=== PATIENT | male | born 1940 | race Caucasian/White ===

== ENCOUNTER → 2020-07-14 11:28 | Outpatient (CLI) | payer OTHER, SELFPAY ==
--- NOTE | ~2020-07-14 | XR_ITS ---
XR knee RT 2V DATE: 07/14/2020 11:49 INDICATION: Knee pain. TECHNIQUE: AP and lateral views COMPARISON: 03/10/2014 right knee FINDINGS: Status post right total knee arthroplasty with patellar resurfacing. No fracture or dislocation, periosteal reaction or bone destruction is evident. Small suprapatellar joint effusion. There is extensive calcification of the femoral, popliteal and trifurcation arteries. IMPRESSION: Status post right total knee arthroplasty Reviewed, dictated and finalized at location [facility]. 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
== END ==
PROVIDERS: PCP Family Medicine; Visit Provider Family Medicine
DX: M25.561 Pain in right knee (principal)
CPT/HCPCS: 73560

== ENCOUNTER 2021-08-09 16:12 | Inpatient (IN) | payer OTHER, SELFPAY ==
--- NOTE | ~2021-08-09 | CT_ITS ---
EXAMINATION: CTA chest PE protocol DATE: 08/09/2021 18:22 INDICATION: Decreased oxygen saturation. Positive d-dimer. Covid-positive. TECHNIQUE: Computed tomography angiography (CTA) of the chest was performed with 100 mL Omnipaque-350 intravenous contrast timed to evaluate the pulmonary arteries. Coronal maximum intensity projection 3D-reconstructions were created by the technologist. Automated exposure control and iterative reconst ruction technique were employed. Exam dose: 872.18 mGy-cm total exam DLP. COMPARISON: 02/13/2014 2 view chest FINDINGS: There is diagnostic contrast enhancement of the pulmonary arteries and no apparent pulmonar y embolism. Status post sternotomy. Mild thoracic aortic aneurysm and calcification. No thoracic aortic dissectio n is evident. Heart size is within normal range. There is no pericardial or pleural effusion. There is mild hilar and mediastinal lymph node prominence, likely reactive secondary to extensive pat tacos consolidating groundglass bilateral pulmonary infiltrates, right greater than left. Suspicious osteolytic or osteoblastic lesions. IMPRESSION: Extensive patchy consolidating bilateral groundglass pulmonary infiltrates, right greate r than left, suggesting extensive bilateral Covid pneumonia No pulmonary embolus is identified. Reviewed, dictated and finalized at [facility]. Reviewed, dictated and finalized at location [facility]. STERILIZER IMPRESSION: Extensive patchy consolidating bilateral groundglass pulmonary inf iltrates, right greater than left, suggesting extensive bilateral Covid pneumon ia No pulmonary embolus is identified.
--- NOTE | ~2021-08-09 | XR_ITS ---
XR chest 1V portable DATE: 08/14/2021 06:35 INDICATION: Pneumonia TECHNIQUE: Portable AP chest on 08/14/2021 at 0554 hours COMPARISON: 08/09/2021 CTA chest FINDINGS: Scattered patchy bilateral pulmonary infiltrates persist throughout both lung leyva, more prominent in the lower lung leyva. Status post sternotomy. Aortic calcification. No pleural effusion or pneumothorax. IMPRESSION: Persistent scattered patchy bilateral pulmonary infiltrates consistent with bilateral pne umonia, likely due to Covid 19 Reviewed, dictated and finalized at location A. LATION TECH IMPRESSION: Persistent scattered patchy bilateral pulmonary infiltrates consist ent with bilateral pneumonia, likely due to Covid 19
[2021-08-09 16:17] VITALS: BP 161/70; PULSE 70; RESP 20; TEMP 36.6; O2SAT 84
--- NOTE | 2021-08-09 16:43 | ED.GENADULT ---
HPI - General Adult General Chief complaint: Shortness of Breath/Dyspnea Stated complaint: LOW O2 SATS Time Seen by Provider: 08/09/21 16:14 Source: patient, EMS and RN notes reviewed Limitations: no limitations History of Present Illness HPI narrative: 81-year-old male presented to the emergency department for evaluation of a hypoxia. Patient began developing COVID symptoms on 20 July and tested positive on the . Patient reports he has had red eyes for the past 2 weeks. Patient was going to be evaluated by his primary care physician when he was found to be 84% on room air. Patient denies any chest pain or shortness of breath. Patient states that his children had noticed that he had been sounding out of breath during conversations. Patient also does report increased exertional fatigue. Patient denies any associated nausea vomiting or diarrhea. Patient denies any abdominal pain. Patient denies any fevers or myalgias. Patient did have bypass surgery in October. Patient does have a remote history of knee surgery and appendectomy. Related Data Home Medications Medication Instructions Recorded Confirmed blood sugar diagnostic #10 each 11/15/19 insulin glargine 100 unit/mL (3 30 unit SUB-Q DAILY 11/15/19 mL) subcutaneous pen lisinopril 10 mg tablet 10 mg PO DAILY 11/15/19 pen needle, diabetic 32 gauge x #10 each 11/15/19 triamcinolone acetonide 0.1 % 1 applic TOPICAL DAILY 11/15/19 lotion carvedilol 08/09/21 gabapentin 08/09/21 rosuvastatin mg 08/09/21 sertraline mg 08/09/21 08/09/21 Allergies Allergy/AdvReac Type Severity Reaction Status Date / Time No Known Allergies Allergy Verified 11/01/20 09:51 Review of Systems Review of Systems: CONSTITUTIONAL: Denies fever, chills, or sweats. EYES: Denies visual changes, redness, or discharge. ENT: Eye irritation CARDIOVASCULAR: Denies chest pain, palpitations, or edema. RESPIRATORY: Hypoxia and some exertional shortness of breath GASTROINTESTINAL: Denies abdominal pain, nausea, vomiting, or diarrhea. GENITOURINARY: Denies dysuria or hematuria. SKIN: Denies rash or itching. MUSCULOSKELETAL: Denies back pain, joint pain, or myalgia. NEUROLOGIC: Denies headache, numbness, or weakness. PSYCHIATRIC: Denies anxiety or depression. [facility] Social History Social History Smoking status: Never smoker Alcohol intake: never Substance use: never Exam Narrative: APPEARANCE: Well appearing, no pain in distress, well-nourished. HEAD: normocephalic, atraumatic. EYES: Erythema surrounding eyes. No edema, does not appear to be cellulitis. Normal conjunctiva NOSE: Normal no drainage THROAT: Pharynx clear, no exudate. NECK: Supple. No adenopathy, no masses. RESPIRATORY: Airway patent, respirations nonlabored. Clear to auscultation bilaterally, no rales, rhonchi, wheezing. CARDIOVASCULAR: Regular rate and rhythm without murmurs rubs or gallops. ABDOMINAL: Soft, nontender, nondistended, normal bowel sounds MUSCULOSKELETAL: Moves all extremities. Strength/ROM intact, No edema, No calf tenderness. NEURO: Alert. Cranial nerves II through XII intact. Good gait. Good coordination SKIN: Warm, dry. Normal Color PSYCHIATRIC: Normal affect/mood. Course Course Emergency Course: 81-year-old male presenting to the emergency room for evaluation of hypoxia after his COVID infection. Patient arrived and was saturating 84% on room air. Patient saturating at 94% on 5 L and is in no distress. Patient did have an elevated D-dimer. CTA PE study showed no evidence of pulmonary embolism but did show evidence of COVID-pneumonia. Patient discussed with the hospitalist and it was decided to not start patient on antibiotics, this thought to be COVID-pneumonia and not to be superinfection. Patient was clinically stable at time of admission. Vital Signs Vital signs: Vital Signs Temperature 97.8 F 08/09/21 16:17 Pulse Rate
[2021-08-09 17:30] LABS: Basophils Percent Auto 0.3 % (0.2-1.2); Eosinophils Absolute Auto 0.2 K/mm3 (0-0.3); Eosinophils Percent Auto 1.4 % (0-4.4); Hemoglobin 13.9 g/dL (14.0-18.0); Immature Granulocyte Absolute 0.14 K/mm3 (0.00-0.031); Immature Granulocyte Percent A 0.9 % (0-0.5); Lymphocytes Absolute Auto 1.67 K/mm3 (0.9-3.2); Lymphocytes Percent Auto 10.5 % (18.3-44.2); Mean Corpuscular HGB Conc 33.9 g/dl (32-36); Mean Corpuscular Hemoglobin 30.7 pg (26-34); Mean Corpuscular Volume 90.5 fl (80-100); Mean Platelet Volume 8.3 fl (7.4-10.4); Monocytes Percent Auto 6.1 % (2.6-8.5); Neutrophils Absolute Auto 12.9 K/mm3 (1.3-6.7); Neutrophils Percent Auto 80.8 % (45.5-73.1); Platelet Count Result 333 k/mm3 (150-375); Red Blood Count 4.53 M/mm3 (4.6-6.20); Red Cell Distribution Width 13.3 % (11.5-14.5); White Blood Count 15.9 K/mm3 (4.5-10.0)
[2021-08-09 17:32] VITALS: PULSE 72
[2021-08-09 17:39] LABS: Alanine Aminotransferase 21 U/L (4-50); Albumin Level 3.6 g/dL (3.5-5.1); Alkaline Phosphatase 87 U/L (38-126); Anion Gap 10 mmol/L (8-16); Aspartate Amino Transferase 39 U/L (17-59); Bilirubin,Total 0.2 mg/dL (0.2-1.3); Blood Urea Nitrogen 32 mg/dL (9-20); Calcium 8.7 mg/dL (8.4-10.2); Carbon Dioxide 24 mmol/L (22-30); Chloride 103 mmol/L (98-107); Estimated CRCL calculation 49 ml/min; Estimated Glomerular Filt Rate 53; Glucose 172 mg/dL (65-110); Lactate Dehydrogenase 766 U/L (313-618); Potassium 2.9 mmol/L (3.4-5.0); Sodium 137 mmol/L (137-145)
[2021-08-09 17:41] VITALS: BP 153/70; PULSE 62; RESP 22; O2SAT 93
[2021-08-09 17:58] LABS: D Dimer 11.57 ug/mL (<0.48)
[2021-08-09] MEDS: POTASSIUM CHLORIDE 20 MEQ PACKET (FOR LIQUID) 40 MEQ PO (18:29)
[2021-08-09 19:16] LABS: INR 1.2; Prothrombin Time 14.6 Seconds (11.1-14.7)
--- NOTE | 2021-08-09 19:58 | PM.IMHP ---
H&P: HPI History of Present Illness Date/Time: 08/09/21 19:58 this is a 81-year-old male patient who presented to the emergency room for evaluation of hypoxia. The patient stated that he tested positive for COVID on the 27 of July with symptoms starting on the 20 of July. The patient stated that he has been having thick drainage from both of his ice for at least 2 weeks. He stated that he has been going to an eye doctor and also to his regular doctor concerning a his eyes. The patient was prescribed Polytrim and stated that those bring his eyes. The patient has photosensitivity he stated that he has thick drainage and that his eyes are glued shut when he wakes up in the morning. The patient stated that he was going to his regular doctor today and he was found have a oxygen saturation to 84% on room air. White count is 15.9. H&H is 13.9 and 41.0. Potassium is 2.9. D-dimer 11.57. Blood sugar 172. LDH 766. CTA shows extensive patchy consolidating bilateral ground-glass pulmonary infiltrates, right greater than left, suggesting extensive bilateral COVID pneumonia. No pulmonary embolism is identified. The patient is currently on 6 L per nasal cannula. The patient was supplemented with potassium in the emergency room. He was started on remdesivir and Decadron. The patient is being admitted to inpatient services on the date of service of 08/09/2019 to Chief Complaint: Hypoxia with COVID Review of Systems Review of Systems: All systems reviewed & are unremarkable except as noted in HPI and below Constitutional: Constitutional: Reports as per HPI and Reports no additional constitutional complaints Eyes: Eyes: Reports as per HPI and Reports no additional eye complaints ENT: Reports system reviewed and no additional complaints, except as documented and Reports Normal hearing present Cardiovascular: Cardiovascular: Reports no additional cardiovascular complaints Respiratory: Respiratory: Reports no additional respiratory complaints and Reports no additional respiratory complaints Gastrointestinal: Gastrointestinal: Reports as per HPI and Reports no additional gastrointestinal complaints Musculoskeletal: Musculoskeletal: Reports no additional musculoskeletal complaints Integumentary/Breasts: Skin/Breast: Reports system reviewed and no additional complaints, except as docu and Reports as per HPI Neurologic: Reports system reviewed and no additional complaints, except as documented, Reports as per HPI and Reports Normal hearing present Psychiatric: Psychiatric: Reports no additional psychiatric complaints and Reports as per HPI Endocrine: Endocrine: Reports no additional endocrine complaints Hematologic/Lymphatic: Hematologic/Lymphatic: Reports no additional hematologic/lymphatic complaints Allergic/Immunologic: Allergic/Immunologic: Reports no additional allergic/immunologic complaints [facility] Past Medical History Medical History (Updated 08/09/21 @ 21:48 by Karina Weinberg NP) Diabetes GERD (gastroesophageal reflux disease) History of TIA (transient ischemic attack) HLD (hyperlipidemia) HTN (hypertension) Neuropathy Surgical History Surgical History (Updated 08/09/21 @ 21:48 by Karina Weinberg NP) H/O heart bypass surgery 5 vessel Hx of appendectomy Hx of total knee replacement Family History Family History (Updated 08/09/21 @ 21:50 by Karina Weinberg NP) Father Drug reaction Mother Diabetes mellitus Sibling Diabetes mellitus Social History Social History (Updated 08/09/21 @ 21:57 by Karina Weinberg NP) Social History: The patient stated that he quit smoking many years ago. He stated his around 1995. The patient is and he has 3 children. 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 he does not have a durable power compliance attorney for healthcare. He denies any alcohol marijuana or illicit drugs. Code status full code Smoking status: Former smoker Alcohol intake: never
[2021-08-09 20:04] VITALS: BP 188/88; PULSE 65; RESP 20; O2SAT 94
[2021-08-09] MEDS: REMDESIVIR 200 MG/NS 250 ML 200 MG/250 ML BAG 250 MG IVPB (20:09)
[2021-08-09 21:30] VITALS: BP 158/84; PULSE 60; RESP 16; TEMP 36.7; O2SAT 94
[2021-08-09 21:57] VITALS: BMI 32.3
[2021-08-09 21:58] VITALS: TEMP 36.7
[2021-08-10] VITALS (9 sets, daily range): BP systolic 133–169; BP diastolic 56–84; PULSE 56–74; RESP 18–20; TEMP 35.8–36.8; O2SAT 93–100
[2021-08-10] MEDS: FAMOTIDINE 10 MG TABLET PO ×2 (01:28→20:09)
[2021-08-10] MEDS: BENZONATATE 100 MG CAPSULE 200 MG PO ×4 (01:28→16:26)
[2021-08-10] MEDS: GABAPENTIN 100 MG CAPSULE BY MOUTH ×3 (01:28→20:09)
[2021-08-10] MEDS: carvediloL 6.25 MG TABLET BY MOUTH ×3 (01:29→20:09)
[2021-08-10] MEDS: ACETAMINOPHEN 325 MG TABLET 650 MG PO (01:29)
[2021-08-10] MEDS: INSULIN GLARGINE (*BKC) 100 UNITS/ML 30 UNITS SUB-Q ×2 (01:31→20:09)
[2021-08-10 01:40] LABS: Glucose Point of Care 204 mg/dl (65-105)
--- NOTE | 2021-08-10 02:15 | ADMGEN ---
This patient, Jordy Olivarez, was admitted to [facility] Surg Room 305-01 at 2130. Patient/family oriented to hospital policies and general routines including ID bracelet, bed and alarms, visiting hours, pain management, procedures, bathroom and other care routines, personal items, smoking policy, room service/diet, and visiting hours. Information on how to activate the Rapid Response Team has been discussed. Patient/Family are encouraged to report perceived risks to care and to ask questions if they do not understand what they are told or what they should do.
[2021-08-10] MEDS: ERYTHROMYCIN OPHTH OINTMENT 1 GM TUBE 1 APPLIC EACH EYE ×5 (05:08→20:09)
[2021-08-10 07:22] LABS: Basophils Percent Auto 0.2 % (0.2-1.2); Hematocrit 40.7 % (42.0-52.0); Hemoglobin 13.8 g/dL (14.0-18.0); Immature Granulocyte Absolute 0.12 K/mm3 (0.00-0.031); Mean Corpuscular HGB Conc 33.9 g/dl (32-36); Mean Corpuscular Hemoglobin 30.7 pg (26-34); Mean Corpuscular Volume 90.4 fl (80-100); Mean Platelet Volume 8.8 fl (7.4-10.4); Monocytes Absolute Auto 0.3 K/mm3 (0.1-0.6); Neutrophils Absolute Auto 10.8 K/mm3 (1.3-6.7); Neutrophils Percent Auto 87.8 % (45.5-73.1); Platelet Count Result 350 k/mm3 (150-375); Red Cell Distribution Width 13.3 % (11.5-14.5); White Blood Count 12.3 K/mm3 (4.5-10.0)
[2021-08-10 07:33] LABS: Alanine Aminotransferase 23 U/L (4-50); Albumin Level 3.7 g/dL (3.5-5.1); Alkaline Phosphatase 83 U/L (38-126); Anion Gap 10 mmol/L (8-16); Aspartate Amino Transferase 40 U/L (17-59); Bilirubin,Total 0.2 mg/dL (0.2-1.3); Blood Urea Nitrogen 33 mg/dL (9-20); Calcium 8.8 mg/dL (8.4-10.2); Carbon Dioxide 25 mmol/L (22-30); Chloride 104 mmol/L (98-107); Estimated CRCL calculation 58 ml/min; Estimated Glomerular Filt Rate > 60; Glucose 174 mg/dL (65-110); Lactate Dehydrogenase 747 U/L (313-618); Potassium 3.4 mmol/L (3.4-5.0); Sodium 139 mmol/L (137-145)
[2021-08-10 07:37] LABS: Hemoglobin A1C 7.3 % (<5.7)
[2021-08-10 08:00] LABS: INR 1.1; Prothrombin Time 14.2 Seconds (11.1-14.7)
[2021-08-10] MEDS: DEXAMETHASONE 2 MG TABLET 6 MG PO (08:04)
[2021-08-10] MEDS: SODIUM BICARBONATE TAB 650 MG TABLET 1300 MG PO ×2 (08:04→16:26)
[2021-08-10] MEDS: ENOXAPARIN 40 MG/0.4 ML SYRINGE SUB-Q (08:04)
[2021-08-10] MEDS: ASPIRIN 81 MG CHEWABLE TABLET PO (08:04)
[2021-08-10] MEDS: lisinopriL 10 MG TABLET PO (08:04)
[2021-08-10] MEDS: ROSUVASTATIN 10 MG TABLET PO (08:05)
[2021-08-10] MEDS: TRIAMCINOLONE ACET 0.1% CREAM 15 GM TUBE 1 APPLIC TOPICAL (08:06)
[2021-08-10] MEDS: SERTRALINE HCL 25 MG TABLET PO (08:06)
[2021-08-10 08:48] LABS: Glucose Point of Care 150 mg/dl (65-105)
--- NOTE | 2021-08-10 09:00 | PM.IMPN ---
Progress Note: A&P Assessment and Plan (1) Pneumonia due to COVID-19 virus: Code(s): U07.1 - COVID-19; J12.82 - Pneumonia due to coronavirus disease 2018 Status: Acute Assessment and Plan: Tested COVID positive 07/27/21 CTA Extensive patchy consolidating bilateral groundglass pulmonary infiltrates, right greater than left, suggesting extensive bilateral Covid pneumonia oxygen at 10 L per nasal cannula, wean to maintain saturation >90% Continue with Decadron and remdesivir Day 2 Trend Inflammatory markers: LDH 747, D-dimer 11.57 Encourage self proning Albuterol inhalers IS, Cornette therapy Sputum culture to r/o atypical infection Start azithromycin and ceftriaxone since WBC are elevated, but tending down currently 12.3 (2) Acute respiratory failure due to COVID-19: Code(s): U07.1 - COVID-19; J96.00 - Acute respiratory failure, unspecified whether with hypoxia or hypercapnia Status: Acute Assessment and Plan: Saturations low in ED 84% Supplemental oxygen Wean oxygen as indicated Maintain saturations to keep >90% (3) Diabetes: Code(s): E11.9 - Type 2 diabetes mellitus without complications Status: Chronic Assessment and Plan: Glucose 174 Sliding scale insulin A1c 7.3 Seems to be diet controlled Trend closely as patient is on steroids Adjust therapy as indicated (4) HTN (hypertension): Code(s): I10 - Essential (primary) hypertension Status: Chronic Assessment and Plan: BP elevated at 158/84 Continue home Coreg 6.25 and lisinopril 10mg Trend blood pressure Adjust medications as indicated (5) HLD (hyperlipidemia): Code(s): E78.5 - Hyperlipidemia, unspecified Status: Chronic Assessment and Plan: AST/ALT 40/23 Continue with rosuvastatin (6) Conjunctivitis: Code(s): H10.9 - Unspecified conjunctivitis Status: Acute Assessment and Plan: Continue erythromycin ointment (7) Neuropathy: Code(s): G62.9 - Polyneuropathy, unspecified Status: Chronic Assessment and Plan: Continue gabapentin 100mg BID Increase based on symptoms Time Spent With Patient Time with patient: Greater than 35 minutes Subjective Date/time seen: 08/10/21 0900 Interval history: Date/Time: 08/09/21 19:58 This is a 81-year-old male patient who presented to the emergency room for evaluation of hypoxia. The patient stated that he tested positive for COVID on the 27 of July with symptoms starting on the 20 of July. The patient stated that he has been having thick drainage from both of his ice for at least 2 weeks. He stated that he has been going to an eye doctor and also to his regular doctor concerning a his eyes. The patient was prescribed Polytrim and stated that those bring his eyes. The patient has photosensitivity he stated that he has thick drainage and that his eyes are glued shut when he wakes up in the morning. The patient stated that he was going to his regular doctor today and he was found have a oxygen saturation to 84% on room air. White count is 15.9. H&H is 13.9 and 41.0. Potassium is 2.9. D-dimer 11.57. Blood sugar 172. LDH 766. CTA shows extensive patchy consolidating bilateral ground-glass pulmonary infiltrates, right greater than left, suggesting extensive bilateral COVID pneumonia. No pulmonary embolism is identified. The patient is currently on 6 L per nasal cannula. The patient was supplemented with potassium in the emergency room. He was started on remdesivir and Decadron. Date/Time 08/10/21 0900 Patient stated that he is short of breath 3 moves around. He is ready to go. However patient is on 10 L nasal cannula at this time. Patient does have a minimal appetite. Patient did state that he had bypass x5 done in October of last year. He denies chest pain, nausea, vomiting, diarrhea, co
--- NOTE | 2021-08-10 09:00 | P.PNIM_ITS ---
Progress Note: A&P Assessment and Plan (1) Pneumonia due to COVID-19 virus: Code(s): U07.1 - COVID-19; J12.82 - Pneumonia due to coronavirus disease 2019 Status: Acute Assessment and Plan: * Tested COVID positive 07/27/21 * CTA Extensive patchy consolidating bilateral groundglass pulmonary infiltrates, right greater than left, suggesting extensive bilateral Covid pneumonia * oxygen at 10 L per nasal cannula, wean to maintain saturation >90% * Continue with Decadron and remdesivir Day 2 * Trend Inflammatory markers: LDH 747, D-dimer 11.57 * Encourage self proning * Albuterol inhalers * IS, Cornette therapy * Sputum culture to r/o atypical infection * Start azithromycin and ceftriaxone since WBC are elevated, but tending down currently 12.3 (2) Acute respiratory failure due to COVID-19: Code(s): U07.1 - COVID-19; J96.00 - Acute respiratory failure, unspecified whether with hypoxia or hypercapnia Status: Acute Assessment and Plan: * Saturations low in ED 84% * Supplemental oxygen * Wean oxygen as indicated * Maintain saturations to keep >90% (3) Diabetes: Code(s): E11.9 - Type 2 diabetes mellitus without complications Status: Chronic Assessment and Plan: * Glucose 174 * Sliding scale insulin * A1c 7.3 * Seems to be diet controlled * Trend closely as patient is on steroids * Adjust therapy as indicated (4) HTN (hypertension): Code(s): I10 - Essential (primary) hypertension Status: Chronic Assessment and Plan: * BP elevated at 158/84 * Continue home Coreg 6.25 and lisinopril 10mg * Trend blood pressure * Adjust medications as indicated (5) HLD (hyperlipidemia): Code(s): E78.5 - Hyperlipidemia, unspecified Status: Chronic Assessment and Plan: * AST/ALT 40/23 * Continue with rosuvastatin (6) Conjunctivitis: Code(s): H10.9 - Unspecified conjunctivitis Status: Acute Assessment and Plan: * Continue erythromycin ointment (7) Neuropathy: Code(s): G62.9 - Polyneuropathy, unspecified Status: Chronic Assessment and Plan: * Continue gabapentin 100mg BID * Increase based on symptoms Time Spent With Patient Time with patient: Greater than 35 minutes Subjective Date/time seen: 08/10/21 0900 Interval history: Date/Time: 08/09/21 19:58 This is a 81-year-old male patient who presented to the emergency room for evaluation of hypoxia. The patient stated that he tested positive for COVID on the 27 of July with symptoms starting on the 20 of July. The patient stated that he has been having thick drainage from both of his ice for at least 2 weeks. He stated that he has been going to an eye doctor and also to his regular doctor concerning a his eyes. The patient was prescribed Polytrim and stated that those bring his eyes. The patient has photosensitivity he stated that he has thick drainage and that his eyes are glued shut when he wakes up in the morning. The patient stated that he was going to his regular doctor today and he was found have a oxygen saturation to 84% on room air. White count is 15.9. H&H is 13.9 and 41.0. Potassium is 2.9. D-dimer 11.57. Blood sugar 172. LDH 766. CTA shows extensive patchy consolidating bilateral ground-glass pulmonary infiltrates, right greater than left, suggesting extensive bilateral COVID pneumonia. No pul
[2021-08-10 12:04] LABS: Glucose Point of Care 215 mg/dl (65-105)
[2021-08-10] MEDS: INSULIN ASPART (*BKC) 100 UNITS/ML SUB-Q ×2 (12:19→16:29)
[2021-08-10 13:25] LABS: Thyroid Stimulating Hormone Reflex 0.571 uIU/mL (0.465-4.68)
[2021-08-10 16:25] LABS: Glucose Point of Care 266 mg/dl (65-105)
[2021-08-10] MEDS: REMDESIVIR 100 MG/NS 250 ML 100 MG/250 ML BAG 250 MG IVPB (20:10)
[2021-08-10 22:36] LABS: Glucose Point of Care 255 mg/dl (65-105)
[2021-08-11] VITALS (9 sets, daily range): BP systolic 150–188; BP diastolic 66–143; PULSE 54–69; RESP 16–20; TEMP 36.1–37.1; O2SAT 88–96
[2021-08-11] MEDS: ACETAMINOPHEN 325 MG TABLET 650 MG PO ×2 (04:00→19:38)
[2021-08-11] MEDS: ERYTHROMYCIN OPHTH OINTMENT 1 GM TUBE 1 APPLIC EACH EYE ×5 (04:05→20:58)
[2021-08-11 06:40] LABS: Alanine Aminotransferase 34 U/L (4-50); Estimated CRCL calculation 50 ml/min; Estimated Glomerular Filt Rate 53
[2021-08-11 06:45] LABS: INR 1.3
[2021-08-11 07:36] LABS: Basophils Percent Auto 0.1 % (0.2-1.2); Hemoglobin 13.3 g/dL (14.0-18.0); Immature Granulocyte Absolute 0.11 K/mm3 (0.00-0.031); Immature Granulocyte Percent A 0.8 % (0-0.5); Lymphocytes Absolute Auto 1.68 K/mm3 (0.9-3.2); Lymphocytes Percent Auto 12.1 % (18.3-44.2); Mean Corpuscular HGB Conc 33.3 g/dl (32-36); Mean Corpuscular Hemoglobin 30.7 pg (26-34); Mean Corpuscular Volume 92.4 fl (80-100); Mean Platelet Volume 8.8 fl (7.4-10.4); Monocytes Percent Auto 7.3 % (2.6-8.5); Neutrophils Absolute Auto 11.1 K/mm3 (1.3-6.7); Neutrophils Percent Auto 79.7 % (45.5-73.1); Platelet Count Result 383 k/mm3 (150-375); Red Blood Count 4.33 M/mm3 (4.6-6.20); Red Cell Distribution Width 13.4 % (11.5-14.5); White Blood Count 13.9 K/mm3 (4.5-10.0)
[2021-08-11 07:54] LABS: Alanine Aminotransferase 34 U/L (4-50); Albumin Level 3.3 g/dL (3.5-5.1); Alkaline Phosphatase 72 U/L (38-126); Anion Gap 9 mmol/L (8-16); Aspartate Amino Transferase 51 U/L (17-59); Bilirubin,Total 0.2 mg/dL (0.2-1.3); Blood Urea Nitrogen 37 mg/dL (9-20); CRP 7.7 mg/dL (<1.0); Calcium 8.6 mg/dL (8.4-10.2); Carbon Dioxide 25 mmol/L (22-30); Chloride 103 mmol/L (98-107); Estimated CRCL calculation 50 ml/min; Estimated Glomerular Filt Rate 53; Glucose 161 mg/dL (65-110); Lactate Dehydrogenase 669 U/L (313-618); Magnesium 2.2 mg/dL (1.6-2.3); NT Pro B Type Natriuretic Pept 1600 pg/mL (5-100); Potassium 3.8 mmol/L (3.4-5.0); Sodium 137 mmol/L (137-145)
[2021-08-11 08:15] LABS: Glucose Point of Care 142 mg/dl (65-105)
[2021-08-11] MEDS: DEXAMETHASONE 2 MG TABLET 6 MG PO (08:17)
[2021-08-11] MEDS: BENZONATATE 100 MG CAPSULE 200 MG PO ×3 (08:17→17:43)
[2021-08-11] MEDS: SERTRALINE HCL 25 MG TABLET PO (08:17)
[2021-08-11] MEDS: SODIUM BICARBONATE TAB 650 MG TABLET 1300 MG PO ×2 (08:17→17:43)
[2021-08-11] MEDS: GABAPENTIN 100 MG CAPSULE BY MOUTH ×2 (08:17→20:59)
[2021-08-11] MEDS: carvediloL 6.25 MG TABLET BY MOUTH (08:17)
[2021-08-11] MEDS: ENOXAPARIN 40 MG/0.4 ML SYRINGE SUB-Q (08:18)
[2021-08-11] MEDS: lisinopriL 10 MG TABLET PO (08:18)
[2021-08-11] MEDS: ASPIRIN 81 MG CHEWABLE TABLET PO (08:18)
[2021-08-11] MEDS: ROSUVASTATIN 10 MG TABLET PO (08:18)
[2021-08-11] MEDS: TRIAMCINOLONE ACET 0.1% CREAM 15 GM TUBE 1 APPLIC TOPICAL (08:19)
[2021-08-11 08:36] LABS: D Dimer 3.54 ug/mL (<0.48)
--- NOTE | 2021-08-11 09:45 | P.PNIM_ITS ---
Progress Note: A&P Assessment and Plan (1) Pneumonia due to COVID-19 virus: Code(s): U07.1 - COVID-19; J12.82 - Pneumonia due to coronavirus disease 2019 Status: Acute Assessment and Plan: * Tested COVID positive 07/27/21 * CTA Extensive patchy consolidating bilateral groundglass pulmonary infiltrates, right greater than left, suggesting extensive bilateral Covid pneumonia * oxygen at 6 L per nasal cannula, wean to maintain saturation >90% * Continue with Decadron and remdesivir Day 3 * Trend Inflammatory markers: LDH 669, D-dimer 3.54, CRP 7., Ferritin 189 * BNP elevated 1600, one dose of IV lasix 40mg * Encourage self proning * Albuterol inhalers * IS, Cornette therapy * Sputum culture came back contaminated * Start azithromycin and ceftriaxone since WBC are elevated, but tending down currently 13.9 (2) Acute respiratory failure due to COVID-19: Code(s): U07.1 - COVID-19; J96.00 - Acute respiratory failure, unspecified whether with hypoxia or hypercapnia Status: Acute Assessment and Plan: * Saturations low in ED 84% * Supplemental oxygen * Wean oxygen as indicated * Maintain saturations to keep >90% (3) Diabetes: Code(s): E11.9 - Type 2 diabetes mellitus without complications Status: Chronic Assessment and Plan: * Glucose 161 * Sliding scale insulin * A1c 7.3 * Seems to be diet controlled * Trend closely as patient is on steroids * Adjust therapy as indicated (4) HTN (hypertension): Code(s): I10 - Essential (primary) hypertension Status: Chronic Assessment and Plan: * BP elevated at 177/71 * Continue home Coreg 6.25, increased to 12.5mg and lisinopril 10mg * Trend blood pressure * Adjust medications as indicated (5) HLD (hyperlipidemia): Code(s): E78.5 - Hyperlipidemia, unspecified Status: Chronic Assessment and Plan: * AST/ALT 51/34 * Continue with rosuvastatin (6) Conjunctivitis: Code(s): H10.9 - Unspecified conjunctivitis Status: Acute Assessment and Plan: * Continue erythromycin ointment (7) Neuropathy: Code(s): G62.9 - Polyneuropathy, unspecified Status: Chronic Assessment and Plan: * Continue gabapentin 100mg BID * Increase based on symptoms (8) Fluid overload: Code(s): E87.70 - Fluid overload, unspecified Status: Acute Assessment and Plan: * BNP elevated 1600 * Getting an echo * No history of CHF, however could be playing a role * Lasix as indicated day by day Time Spent With Patient Time with patient: Greater than 35 minutes Subjective Date/time seen: 08/11/21 10:20 Interval history: Date/Time: 08/09/21 19:58 This is a 81-year-old male patient who presented to the emergency room for eval uation of hypoxia. The patient stated that he tested positive for COVID on the 27 of July with symptoms starting on the 20 of July. The patient stated that he has been having thick drainage from both of his ice for at least 2 weeks. He stated that he has been going to an eye doctor and also to his regular doctor concerning a his eyes. The patient was prescribed Polytrim and stated that those bring his eyes. The patient has photosensitivity he stated that he has thick drainage and that his eyes are glued shut when he wakes up in the morning. The patient
--- NOTE | 2021-08-11 09:45 | PM.IMPN ---
Progress Note: A&P Assessment and Plan (1) Pneumonia due to COVID-19 virus: Code(s): U07.1 - COVID-19; J12.82 - Pneumonia due to coronavirus disease 2019 Status: Acute Assessment and Plan: Tested COVID positive 07/27/21 CTA Extensive patchy consolidating bilateral groundglass pulmonary infiltrates, right greater than left, suggesting extensive bilateral Covid pneumonia oxygen at 6 L per nasal cannula, wean to maintain saturation >90% Continue with Decadron and remdesivir Day 3 Trend Inflammatory markers: LDH 669, D-dimer 3.54, CRP 7., Ferritin 189 BNP elevated 1600, one dose of IV lasix 40mg Encourage self proning Albuterol inhalers IS, Cornette therapy Sputum culture came back contaminated Start azithromycin and ceftriaxone since WBC are elevated, but tending down currently 13.9 (2) Acute respiratory failure due to COVID-19: Code(s): U07.1 - COVID-19; J96.00 - Acute respiratory failure, unspecified whether with hypoxia or hypercapnia Status: Acute Assessment and Plan: Saturations low in ED 84% Supplemental oxygen Wean oxygen as indicated Maintain saturations to keep >90% (3) Diabetes: Code(s): E11.9 - Type 2 diabetes mellitus without complications Status: Chronic Assessment and Plan: Glucose 161 Sliding scale insulin A1c 7.3 Seems to be diet controlled Trend closely as patient is on steroids Adjust therapy as indicated (4) HTN (hypertension): Code(s): I10 - Essential (primary) hypertension Status: Chronic Assessment and Plan: BP elevated at 177/71 Continue home Coreg 6.25, increased to 12.5mg and lisinopril 10mg Trend blood pressure Adjust medications as indicated (5) HLD (hyperlipidemia): Code(s): E78.5 - Hyperlipidemia, unspecified Status: Chronic Assessment and Plan: AST/ALT 51/34 Continue with rosuvastatin (6) Conjunctivitis: Code(s): H10.9 - Unspecified conjunctivitis Status: Acute Assessment and Plan: Continue erythromycin ointment (7) Neuropathy: Code(s): G62.9 - Polyneuropathy, unspecified Status: Chronic Assessment and Plan: Continue gabapentin 100mg BID Increase based on symptoms (8) Fluid overload: Code(s): E87.70 - Fluid overload, unspecified Status: Acute Assessment and Plan: BNP elevated 1600 Getting an echo No history of CHF, however could be playing a role Lasix as indicated day by day Time Spent With Patient Time with patient: Greater than 35 minutes Subjective Date/time seen: 08/11/21 10:20 Interval history: Date/Time: 08/09/21 19:58 This is a 81-year-old male patient who presented to the emergency room for evaluation of hypoxia. The patient stated that he tested positive for COVID on the 27 of July with symptoms starting on the 20 of July. The patient stated that he has been having thick drainage from both of his ice for at least 2 weeks. He stated that he has been going to an eye doctor and also to his regular doctor concerning a his eyes. The patient was prescribed Polytrim and stated that those bring his eyes. The patient has photosensitivity he stated that he has thick drainage and that his eyes are glued shut when he wakes up in the morning. The patient stated that he was going to his regular doctor today and he was found have a oxygen saturation to 84% on room air. White count is 15.9. H&H is 13.9 and 41.0. Potassium is 2.9. D-dimer 11.57. Blood sugar 172. LDH 766. CTA shows extensive patchy consolidating bilateral ground-glass pulmonary infiltrates, right greater than left, suggesting extensive bilateral COVID pneumonia. No pulmonary embolism is identified. The patient is currently on 6 L per nasal cannula. The patient was supplemented with potassium in the emergency room. He was started on remdesivir
[2021-08-11] MEDS: FUROSEMIDE INJ 40 MG/4 ML VIAL IV PUSH (10:36)
[2021-08-11] MEDS: WATER FOR IRRIGATION, STERILE 1,000 ML BOTTLE 1000 ML (10:37)
[2021-08-11 11:44] LABS: Glucose Point of Care 180 mg/dl (65-105)
[2021-08-11] MEDS: INSULIN ASPART (*BKC) 100 UNITS/ML SUB-Q (17:43)
[2021-08-11 17:50] LABS: Glucose Point of Care 244 mg/dl (65-105)
[2021-08-11] MEDS: INSULIN GLARGINE (*BKC) 100 UNITS/ML 30 UNITS SUB-Q (20:56)
[2021-08-11] MEDS: REMDESIVIR 100 MG/NS 250 ML 100 MG/250 ML BAG 250 MG IVPB (20:56)
[2021-08-11] MEDS: carvediloL 12.5 MG TABLET BY MOUTH (20:58)
[2021-08-11] MEDS: FAMOTIDINE 10 MG TABLET PO (20:59)
[2021-08-11 21:14] LABS: Glucose Point of Care 306 mg/dl (65-105)
[2021-08-12] VITALS (8 sets, daily range): BP systolic 136–167; BP diastolic 48–70; PULSE 51–85; RESP 14–16; TEMP 36.1–36.8; O2SAT 90–96
[2021-08-12] MEDS: ERYTHROMYCIN OPHTH OINTMENT 1 GM TUBE 1 APPLIC EACH EYE ×5 (04:51→20:21)
[2021-08-12 06:24] LABS: Basophils Percent Auto 0.1 % (0.2-1.2); Hematocrit 41.6 % (42.0-52.0); Hemoglobin 14.1 g/dL (14.0-18.0); Immature Granulocyte Absolute 0.09 K/mm3 (0.00-0.031); Immature Granulocyte Percent A 0.7 % (0-0.5); Lymphocytes Absolute Auto 1.55 K/mm3 (0.9-3.2); Lymphocytes Percent Auto 12.6 % (18.3-44.2); Mean Corpuscular HGB Conc 33.9 g/dl (32-36); Mean Corpuscular Hemoglobin 30.8 pg (26-34); Mean Corpuscular Volume 90.8 fl (80-100); Mean Platelet Volume 8.7 fl (7.4-10.4); Monocytes Absolute Auto 0.8 K/mm3 (0.1-0.6); Monocytes Percent Auto 6.3 % (2.6-8.5); Neutrophils Absolute Auto 9.9 K/mm3 (1.3-6.7); Neutrophils Percent Auto 80.3 % (45.5-73.1); Platelet Count Result 398 k/mm3 (150-375); Red Blood Count 4.58 M/mm3 (4.6-6.20); Red Cell Distribution Width 13.2 % (11.5-14.5); White Blood Count 12.3 K/mm3 (4.5-10.0)
[2021-08-12 06:46] LABS: Alanine Aminotransferase 33 U/L (4-50); Albumin Level 3.4 g/dL (3.5-5.1); Alkaline Phosphatase 76 U/L (38-126); Anion Gap 10 mmol/L (8-16); Aspartate Amino Transferase 39 U/L (17-59); Bilirubin,Total 0.4 mg/dL (0.2-1.3); Blood Urea Nitrogen 46 mg/dL (9-20); CRP 3.4 mg/dL (<1.0); Calcium 8.7 mg/dL (8.4-10.2); Carbon Dioxide 29 mmol/L (22-30); Chloride 98 mmol/L (98-107); Estimated CRCL calculation 50 ml/min; Estimated Glomerular Filt Rate 53; Glucose 181 mg/dL (65-110); Magnesium 2.1 mg/dL (1.6-2.3); Sodium 137 mmol/L (137-145)
[2021-08-12 07:24] LABS: INR 1.2; Prothrombin Time 14.6 Seconds (11.1-14.7)
[2021-08-12 07:42] LABS: D Dimer 2.78 ug/mL (<0.48)
[2021-08-12 08:19] LABS: Glucose Point of Care 160 mg/dl (65-105)
[2021-08-12] MEDS: ENOXAPARIN 40 MG/0.4 ML SYRINGE SUB-Q (08:21)
[2021-08-12] MEDS: GABAPENTIN 100 MG CAPSULE BY MOUTH ×2 (08:21→20:21)
[2021-08-12] MEDS: TRIAMCINOLONE ACET 0.1% CREAM 15 GM TUBE 1 APPLIC TOPICAL (08:21)
[2021-08-12] MEDS: DEXAMETHASONE 2 MG TABLET 6 MG PO (08:21)
[2021-08-12] MEDS: FUROSEMIDE INJ 40 MG/4 ML VIAL IV PUSH (08:21)
[2021-08-12] MEDS: ROSUVASTATIN 10 MG TABLET PO (08:21)
[2021-08-12] MEDS: ASPIRIN 81 MG CHEWABLE TABLET PO (08:22)
[2021-08-12] MEDS: carvediloL 12.5 MG TABLET BY MOUTH ×2 (08:22→20:21)
[2021-08-12] MEDS: SODIUM BICARBONATE TAB 650 MG TABLET 1300 MG PO ×2 (08:22→16:44)
[2021-08-12] MEDS: SERTRALINE HCL 25 MG TABLET PO (08:22)
[2021-08-12] MEDS: lisinopriL 10 MG TABLET PO (08:22)
[2021-08-12] MEDS: BENZONATATE 100 MG CAPSULE 200 MG PO ×3 (08:22→16:44)
--- NOTE | 2021-08-12 09:30 | PM.IMPN ---
Progress Note: A&P Assessment and Plan (1) Pneumonia due to COVID-19 virus: Code(s): U07.1 - COVID-19; J12.82 - Pneumonia due to coronavirus disease 2019 Status: Acute Assessment and Plan: Tested COVID positive 07/27/21 CTA Extensive patchy consolidating bilateral groundglass pulmonary infiltrates, right greater than left, suggesting extensive bilateral Covid pneumonia oxygen at 6 L per nasal cannula, wean to maintain saturation >90% Continue with Decadron and remdesivir Day 3 Trend Inflammatory markers: LDH 685, D-dimer 2.78, CRP 3.4, Ferritin 159 BNP elevated 1600, one dose of IV lasix 40mg repeated, will give a dose again tonight Encourage self proning Albuterol inhalers IS, Cornette therapy Sputum culture came back contaminated Start azithromycin and ceftriaxone since WBC are elevated, but tending down currently WBC 12.3 (2) Acute respiratory failure due to COVID-19: Code(s): U07.1 - COVID-19; J96.00 - Acute respiratory failure, unspecified whether with hypoxia or hypercapnia Status: Acute Assessment and Plan: Saturations low in ED 84% Supplemental oxygen Wean oxygen as indicated Maintain saturations to keep >90% (3) Diabetes: Code(s): E11.9 - Type 2 diabetes mellitus without complications Status: Chronic Assessment and Plan: Glucose 181 Sliding scale insulin A1c 7.3 Seems to be diet controlled Trend closely as patient is on steroids Adjust therapy as indicated (4) HTN (hypertension): Code(s): I10 - Essential (primary) hypertension Status: Chronic Assessment and Plan: BP elevated at 143/59 Continue home Coreg 6.25, increased to 12.5mg and lisinopril 10mg Trend blood pressure Adjust medications as indicated (5) HLD (hyperlipidemia): Code(s): E78.5 - Hyperlipidemia, unspecified Status: Chronic Assessment and Plan: AST/ALT 39/33 Continue with rosuvastatin (6) Conjunctivitis: Code(s): H10.9 - Unspecified conjunctivitis Status: Acute Assessment and Plan: Continue erythromycin ointment (7) Neuropathy: Code(s): G62.9 - Polyneuropathy, unspecified Status: Chronic Assessment and Plan: Continue gabapentin 100mg BID Increase based on symptoms (8) Fluid overload: Code(s): E87.70 - Fluid overload, unspecified Status: Acute Assessment and Plan: BNP elevated 1600 Getting an echo No history of CHF, however could be playing a role Lasix as indicated day by day Time Spent With Patient Time with patient: Greater than 35 minutes Subjective Date/time seen: 08/12/21 09:30 Interval history: Date/Time: 08/09/21 19:58 This is a 81-year-old male patient who presented to the emergency room for evaluation of hypoxia. The patient stated that he tested positive for COVID on the 27 of July with symptoms starting on the 20 of July. The patient stated that he has been having thick drainage from both of his ice for at least 2 weeks. He stated that he has been going to an eye doctor and also to his regular doctor concerning a his eyes. The patient was prescribed Polytrim and stated that those bring his eyes. The patient has photosensitivity he stated that he has thick drainage and that his eyes are glued shut when he wakes up in the morning. The patient stated that he was going to his regular doctor today and he was found have a oxygen saturation to 84% on room air. White count is 15.9. H&H is 13.9 and 41.0. Potassium is 2.9. D-dimer 11.57. Blood sugar 172. LDH 766. CTA shows extensive patchy consolidating bilateral ground-glass pulmonary infiltrates, right greater than left, suggesting extensive bilateral COVID pneumonia. No pulmonary embolism is identified. The patient is currently on 6 L per nasal cannula. The patient was supplemented with potassium in the
--- NOTE | 2021-08-12 09:30 | P.PNIM_ITS ---
Progress Note: A&P Assessment and Plan (1) Pneumonia due to COVID-19 virus: Code(s): U07.1 - COVID-19; J12.82 - Pneumonia due to coronavirus disease 2019 Status: Acute Assessment and Plan: * Tested COVID positive 07/27/21 * CTA Extensive patchy consolidating bilateral groundglass pulmonary infiltrates, right greater than left, suggesting extensive bilateral Covid pneumonia * oxygen at 6 L per nasal cannula, wean to maintain saturation >90% * Continue with Decadron and remdesivir Day 3 * Trend Inflammatory markers: LDH 685, D-dimer 2.78, CRP 3.4, Ferritin 159 * BNP elevated 1600, one dose of IV lasix 40mg repeated, will give a dose again tonight * Encourage self proning * Albuterol inhalers * IS, Cornette therapy * Sputum culture came back contaminated * Start azithromycin and ceftriaxone since WBC are elevated, but tending down currently WBC 12.3 (2) Acute respiratory failure due to COVID-19: Code(s): U07.1 - COVID-19; J96.00 - Acute respiratory failure, unspecified whether with hypoxia or hypercapnia Status: Acute Assessment and Plan: * Saturations low in ED 84% * Supplemental oxygen * Wean oxygen as indicated * Maintain saturations to keep >90% (3) Diabetes: Code(s): E11.9 - Type 2 diabetes mellitus without complications Status: Chronic Assessment and Plan: * Glucose 181 * Sliding scale insulin * A1c 7.3 * Seems to be diet controlled * Trend closely as patient is on steroids * Adjust therapy as indicated (4) HTN (hypertension): Code(s): I10 - Essential (primary) hypertension Status: Chronic Assessment and Plan: * BP elevated at 143/59 * Continue home Coreg 6.25, increased to 12.5mg and lisinopril 10mg * Trend blood pressure * Adjust medications as indicated (5) HLD (hyperlipidemia): Code(s): E78.5 - Hyperlipidemia, unspecified Status: Chronic Assessment and Plan: * AST/ALT 39/33 * Continue with rosuvastatin (6) Conjunctivitis: Code(s): H10.9 - Unspecified conjunctivitis Status: Acute Assessment and Plan: * Continue erythromycin ointment (7) Neuropathy: Code(s): G62.9 - Polyneuropathy, unspecified Status: Chronic Assessment and Plan: * Continue gabapentin 100mg BID * Increase based on symptoms (8) Fluid overload: Code(s): E87.70 - Fluid overload, unspecified Status: Acute Assessment and Plan: * BNP elevated 1600 * Getting an echo * No history of CHF, however could be playing a role * Lasix as indicated day by day Time Spent With Patient Time with patient: Greater than 35 minutes Subjective Date/time seen: 08/12/21 09:30 Interval history: Date/Time: 08/09/21 19:58 This is a 81-year-old male patient who presented to the emergency room for evaluation of hypoxia. The patient stated that he tested positive for COVID on the 27 of July with symptoms starting on the 20 of July. The patient stated that he has been having thick drainage from both of his ice for at least 2 weeks. He stated that he has been going to an eye doctor and also to his regular doctor concerning a his eyes. The patient was prescribed Polytrim and stated that those bring his eyes. The patient has photosensitivity he stated that he has thick drainage and that his eyes are glued shut
[2021-08-12 09:57] LABS: Lactate Dehydrogenase 685 U/L (313-618)
[2021-08-12 12:01] LABS: Glucose Point of Care 164 mg/dl (65-105)
[2021-08-12 16:37] LABS: Glucose Point of Care 281 mg/dl (65-105)
[2021-08-12] MEDS: INSULIN ASPART (*BKC) 100 UNITS/ML SUB-Q (16:44)
[2021-08-12] MEDS: FAMOTIDINE 10 MG TABLET PO (20:21)
[2021-08-12] MEDS: ACETAMINOPHEN 325 MG TABLET 650 MG PO (20:21)
[2021-08-12] MEDS: INSULIN GLARGINE (*BKC) 100 UNITS/ML 30 UNITS SUB-Q (20:22)
[2021-08-12 20:39] LABS: Glucose Point of Care 359 mg/dl (65-105)
[2021-08-12] MEDS: REMDESIVIR 100 MG/NS 250 ML 100 MG/250 ML BAG 250 MG IVPB (20:58)
[2021-08-13] VITALS (9 sets, daily range): BP systolic 130–165; BP diastolic 50–78; PULSE 53–75; RESP 16–20; TEMP 36.1–36.7; O2SAT 91–96
--- NOTE | 2021-08-13 | ECHO_ITS ---
Patient Info Name: Jordy Olivarez Age: 81 years : 1940 Gender: Male Ht: 72 in Wt: 238 lbs BSA: 2.37 m2 HR: 58 bpm BP: 130 / 50 mmHg Heart Rhythm: Sinus Rhythm Technical Quality: Fair Exam Date: 08/13/2021 1:56 PM Exam Location: [facility] Patient Status: Inpatient Admit Date: 08/09/2021 Staff Ordering Physician: Davon Crawford Video Game Technician: Ellen Maynard RDCS Attending Provider: Anat Anguiano DO Referring Physician: Ty DAMON; Exam Type: CA echo doppler color flow Study Info Indications - FLUID STATUS Complete two-dimensional, color flow and Doppler transthoracic echocardiogram is performed. Summary 1. Complete two-dimensional, color flow and Doppler transthoracic echocardiogram is performed. 2. Left ventricular chamber dimension is normal. 3. Left ventricular systolic function is normal, estimated at 60-65%. 4. Right ventricular chamber dimension is normal. 5. Left atrial chamber dimension is mildly enlarged. 6. There is mild aortic valve sclerosis. 7. There is mild tricuspid valve regurgitation. Left Ventricle Left ventricular chamber dimension is normal. Left ventricular systolic function is normal, estimated at 60-65%. The left ventricular diastolic function is normal. Right Ventricle Right ventricular chamber dimension is normal. Left Atria Left atrial chamber dimension is mildly enlarged. Right Atria Right atrial chamber dimension is normal. Aortic Valve The aortic valve is trileaflet. There is mild aortic valve sclerosis. Pulmonic Valve The pulmonic valve is normal. Mitral Valve The mitral valve has normal leaflets. Tricuspid Valve The tricuspid valve leaflets are normal. There is mild tricuspid valve regurgitation. Pericardium/Pleural The pericardium appears normal. Aorta The aortic root size at the sinus of Valsalva is normal. Left Ventricular Outflow Tract Name Value Normal LVOT 2D LVOT Diameter 2.1 cm LVOT Doppler LVOT Peak Gradient 4 mmHg LVOT Mean Gradient 2 mmHg LVOT VTI 20 cm LVOT VTI/AV VTI Ratio 0.8 LVOT Stroke Volume 67 ml LVOT CO 13.9 l/min LVOT CI 5.9 l/min/m2 Pulmonic Valve Name Value Normal PV Doppler PV Peak Gradient 1 mmHg Mitral Valve Name Value Normal MV Doppler MV Decel Gilmer 232 cm/s2 MV PHT 93 ms
[2021-08-13] MEDS: ERYTHROMYCIN OPHTH OINTMENT 1 GM TUBE 1 APPLIC EACH EYE ×5 (04:34→21:10)
[2021-08-13 06:03] LABS: Basophils Percent Auto 0.1 % (0.2-1.2); Hematocrit 43.1 % (42.0-52.0); Hemoglobin 14.3 g/dL (14.0-18.0); Immature Granulocyte Absolute 0.08 K/mm3 (0.00-0.031); Immature Granulocyte Percent A 0.7 % (0-0.5); Lymphocytes Absolute Auto 1.64 K/mm3 (0.9-3.2); Lymphocytes Percent Auto 13.4 % (18.3-44.2); Mean Corpuscular HGB Conc 33.2 g/dl (32-36); Mean Corpuscular Hemoglobin 30.4 pg (26-34); Mean Corpuscular Volume 91.7 fl (80-100); Mean Platelet Volume 8.4 fl (7.4-10.4); Monocytes Absolute Auto 1.1 K/mm3 (0.1-0.6); Monocytes Percent Auto 8.8 % (2.6-8.5); Neutrophils Absolute Auto 9.5 K/mm3 (1.3-6.7); Platelet Count Result 363 k/mm3 (150-375); White Blood Count 12.3 K/mm3 (4.5-10.0)
[2021-08-13 06:12] LABS: INR 1.2
[2021-08-13 06:15] LABS: D Dimer 3.37 ug/mL (<0.48)
[2021-08-13 06:29] LABS: Alanine Aminotransferase 32 U/L (4-50); Albumin Level 3.5 g/dL (3.5-5.1); Alkaline Phosphatase 72 U/L (38-126); Anion Gap 8 mmol/L (8-16); Aspartate Amino Transferase 33 U/L (17-59); Bilirubin,Total 0.3 mg/dL (0.2-1.3); Blood Urea Nitrogen 41 mg/dL (9-20); CRP 2.8 mg/dL (<1.0); Calcium 8.5 mg/dL (8.4-10.2); Carbon Dioxide 31 mmol/L (22-30); Chloride 98 mmol/L (98-107); Estimated CRCL calculation 54 ml/min; Estimated Glomerular Filt Rate 58; Glucose 187 mg/dL (65-110); Lactate Dehydrogenase 584 U/L (313-618); Potassium 3.5 mmol/L (3.4-5.0); Sodium 137 mmol/L (137-145)
[2021-08-13 06:41] LABS: Magnesium 2.1 mg/dL (1.6-2.3)
--- NOTE | 2021-08-13 07:00 | PM.IMPN ---
Progress Note: A&P Assessment and Plan (1) Pneumonia due to COVID-19 virus: Code(s): U07.1 - COVID-19; J12.82 - Pneumonia due to coronavirus disease 2019 Status: Acute Assessment and Plan: Tested COVID positive 07/27/21 CTA Extensive patchy consolidating bilateral groundglass pulmonary infiltrates, right greater than left, suggesting extensive bilateral Covid pneumonia oxygen room air, wean to maintain saturation >90% Continue with Decadron and remdesivir Day 4 Trend Inflammatory markers: LDH 584, D-dimer 3.37, CRP 2.8, Ferritin 142 BNP elevated 1600,one dose of IV lasix now Encourage self proning Albuterol inhalers IS, Cornette therapy Sputum culture came back contaminated Start azithromycin and ceftriaxone since WBC are elevated, but tending down currently WBC 12.3 (2) Acute respiratory failure due to COVID-19: Code(s): U07.1 - COVID-19; J96.00 - Acute respiratory failure, unspecified whether with hypoxia or hypercapnia Status: Acute Assessment and Plan: Saturations low in ED 84% Supplemental oxygen Wean oxygen as indicated Maintain saturations to keep >90% (3) Diabetes: Code(s): E11.9 - Type 2 diabetes mellitus without complications Status: Chronic Assessment and Plan: Glucose 187 Sliding scale insulin A1c 7.3 Seems to be diet controlled Trend closely as patient is on steroids Adjust therapy as indicated (4) HTN (hypertension): Code(s): I10 - Essential (primary) hypertension Status: Chronic Assessment and Plan: BP elevated at 130/50 Continue home Coreg 6.25, increased to 12.5mg and lisinopril 10mg Trend blood pressure Adjust medications as indicated (5) HLD (hyperlipidemia): Code(s): E78.5 - Hyperlipidemia, unspecified Status: Chronic Assessment and Plan: AST/ALT 33/32 Continue with rosuvastatin (6) Conjunctivitis: Code(s): H10.9 - Unspecified conjunctivitis Status: Acute Assessment and Plan: Continue erythromycin ointment (7) Neuropathy: Code(s): G62.9 - Polyneuropathy, unspecified Status: Chronic Assessment and Plan: Continue gabapentin 100mg BID Increase based on symptoms (8) Fluid overload: Code(s): E87.70 - Fluid overload, unspecified Status: Acute Assessment and Plan: BNP elevated 1600 Echo ordered No history of CHF, however could be playing a role Lasix as indicated day by day Time Spent With Patient Time with patient: Greater than 35 minutes Subjective Date/time seen: 08/13/21 0700 Interval history: Date/Time: 08/09/21 19:58 This is a 81-year-old male patient who presented to the emergency room for evaluation of hypoxia. The patient stated that he tested positive for COVID on the 27 of July with symptoms starting on the 20 of July. The patient stated that he has been having thick drainage from both of his ice for at least 2 weeks. He stated that he has been going to an eye doctor and also to his regular doctor concerning a his eyes. The patient was prescribed Polytrim and stated that those bring his eyes. The patient has photosensitivity he stated that he has thick drainage and that his eyes are glued shut when he wakes up in the morning. The patient stated that he was going to his regular doctor today and he was found have a oxygen saturation to 84% on room air. White count is 15.9. H&H is 13.9 and 41.0. Potassium is 2.9. D-dimer 11.57. Blood sugar 172. LDH 766. CTA shows extensive patchy consolidating bilateral ground-glass pulmonary infiltrates, right greater than left, suggesting extensive bilateral COVID pneumonia. No pulmonary embolism is identified. The patient is currently on 6 L per nasal cannula. The patient was supplemented with potassium in the emergency room. He was started on remdesivir and Decadron.
--- NOTE | 2021-08-13 07:00 | P.PNIM_ITS ---
Progress Note: A&P Assessment and Plan (1) Pneumonia due to COVID-19 virus: Code(s): U07.1 - COVID-19; J12.82 - Pneumonia due to coronavirus disease 2019 Status: Acute Assessment and Plan: * Tested COVID positive 07/27/21 * CTA Extensive patchy consolidating bilateral groundglass pulmonary infiltrates, right greater than left, suggesting extensive bilateral Covid pneumonia * oxygen room air, wean to maintain saturation >90% * Continue with Decadron and remdesivir Day 4 * Trend Inflammatory markers: LDH 584, D-dimer 3.37, CRP 2.8, Ferritin 142 * BNP elevated 1600,one dose of IV lasix now * Encourage self proning * Albuterol inhalers * IS, Cornette therapy * Sputum culture came back contaminated * Start azithromycin and ceftriaxone since WBC are elevated, but tending down currently WBC 12.3 (2) Acute respiratory failure due to COVID-19: Code(s): U07.1 - COVID-19; J96.00 - Acute respiratory failure, unspecified whether with hypoxia or hypercapnia Status: Acute Assessment and Plan: * Saturations low in ED 84% * Supplemental oxygen * Wean oxygen as indicated * Maintain saturations to keep >90% (3) Diabetes: Code(s): E11.9 - Type 2 diabetes mellitus without complications Status: Chronic Assessment and Plan: * Glucose 187 * Sliding scale insulin * A1c 7.3 * Seems to be diet controlled * Trend closely as patient is on steroids * Adjust therapy as indicated (4) HTN (hypertension): Code(s): I10 - Essential (primary) hypertension Status: Chronic Assessment and Plan: * BP elevated at 130/50 * Continue home Coreg 6.25, increased to 12.5mg and lisinopril 10mg * Trend blood pressure * Adjust medications as indicated (5) HLD (hyperlipidemia): Code(s): E78.5 - Hyperlipidemia, unspecified Status: Chronic Assessment and Plan: * AST/ALT 33/32 * Continue with rosuvastatin (6) Conjunctivitis: Code(s): H10.9 - Unspecified conjunctivitis Status: Acute Assessment and Plan: * Continue erythromycin ointment (7) Neuropathy: Code(s): G62.9 - Polyneuropathy, unspecified Status: Chronic Assessment and Plan: * Continue gabapentin 100mg BID * Increase based on symptoms (8) Fluid overload: Code(s): E87.70 - Fluid overload, unspecified Status: Acute Assessment and Plan: * BNP elevated 1600 * Echo ordered * No history of CHF, however could be playing a role * Lasix as indicated day by day Time Spent With Patient Time with patient: Greater than 35 minutes Subjective Date/time seen: 08/13/21 0700 Interval history: Date/Time: 08/09/21 19:58 This is a 81-year-old male patient who presented to the emergency room for evaluation of hypoxia. The patient stated that he tested positive for COVID on the 27 of July with symptoms starting on the 20 of July. The patient stated that he has been having thick drainage from both of his ice for at least 2 weeks. He stated that he has been going to an eye doctor and also to his regular doctor concerning a his eyes. The patient was prescribed Polytrim and stated that those bring his eyes. The patient has photosensitivity he stated that he has thick drainage and that his eyes are glued shut when he wakes up in the morning. The patient stated that he w
[2021-08-13 08:18] LABS: Glucose Point of Care 159 mg/dl (65-105)
[2021-08-13] MEDS: ENOXAPARIN 40 MG/0.4 ML SYRINGE SUB-Q (10:45)
[2021-08-13] MEDS: carvediloL 12.5 MG TABLET BY MOUTH ×2 (10:45→21:10)
[2021-08-13] MEDS: TRIAMCINOLONE ACET 0.1% CREAM 15 GM TUBE 1 APPLIC TOPICAL (10:45)
[2021-08-13] MEDS: BENZONATATE 100 MG CAPSULE 200 MG PO ×3 (10:45→16:27)
[2021-08-13] MEDS: DEXAMETHASONE 2 MG TABLET 6 MG PO (10:45)
[2021-08-13] MEDS: ROSUVASTATIN 10 MG TABLET PO (10:45)
[2021-08-13] MEDS: SODIUM BICARBONATE TAB 650 MG TABLET 1300 MG PO ×2 (10:45→16:27)
[2021-08-13] MEDS: GABAPENTIN 100 MG CAPSULE BY MOUTH ×2 (10:46→21:09)
[2021-08-13] MEDS: lisinopriL 10 MG TABLET PO (10:46)
[2021-08-13] MEDS: ASPIRIN 81 MG CHEWABLE TABLET PO (10:46)
[2021-08-13 11:41] LABS: Glucose Point of Care 172 mg/dl (65-105)
[2021-08-13] MEDS: SERTRALINE HCL 25 MG TABLET PO (11:58)
[2021-08-13 16:22] LABS: Glucose Point of Care 257 mg/dl (65-105)
[2021-08-13] MEDS: INSULIN ASPART (*BKC) 100 UNITS/ML SUB-Q (17:55)
[2021-08-13] MEDS: ACETAMINOPHEN 325 MG TABLET 650 MG PO (21:09)
[2021-08-13] MEDS: REMDESIVIR 100 MG/NS 250 ML 100 MG/250 ML BAG 250 MG IVPB (21:10)
[2021-08-13] MEDS: FAMOTIDINE 10 MG TABLET PO (21:10)
[2021-08-13] MEDS: INSULIN GLARGINE (*BKC) 100 UNITS/ML 30 UNITS SUB-Q (21:11)
[2021-08-13 21:51] LABS: Glucose Point of Care 329 mg/dl (65-105)
[2021-08-14] VITALS (11 sets, daily range): BP systolic 117–168; BP diastolic 65–99; PULSE 56–68; RESP 20; TEMP 36.1–36.5; O2SAT 86–95
[2021-08-14 06:45] LABS: Basophils Percent Auto 0.2 % (0.2-1.2); Hematocrit 44.5 % (42.0-52.0); Hemoglobin 14.8 g/dL (14.0-18.0); Immature Granulocyte Absolute 0.06 K/mm3 (0.00-0.031); Immature Granulocyte Percent A 0.5 % (0-0.5); Lymphocytes Absolute Auto 1.94 K/mm3 (0.9-3.2); Lymphocytes Percent Auto 15.3 % (18.3-44.2); Mean Corpuscular HGB Conc 33.3 g/dl (32-36); Mean Corpuscular Hemoglobin 30.2 pg (26-34); Mean Corpuscular Volume 90.8 fl (80-100); Monocytes Absolute Auto 0.9 K/mm3 (0.1-0.6); Monocytes Percent Auto 7.4 % (2.6-8.5); Neutrophils Absolute Auto 9.7 K/mm3 (1.3-6.7); Neutrophils Percent Auto 76.6 % (45.5-73.1); Platelet Count Result 407 k/mm3 (150-375); Red Cell Distribution Width 12.7 % (11.5-14.5); White Blood Count 12.6 K/mm3 (4.5-10.0)
[2021-08-14 06:54] LABS: D Dimer 3.32 ug/mL (<0.48)
[2021-08-14 07:02] LABS: Alanine Aminotransferase 36 U/L (4-50); Albumin Level 3.8 g/dL (3.5-5.1); Alkaline Phosphatase 76 U/L (38-126); Anion Gap 10 mmol/L (8-16); Aspartate Amino Transferase 32 U/L (17-59); Bilirubin,Total 0.4 mg/dL (0.2-1.3); Blood Urea Nitrogen 39 mg/dL (9-20); CRP 1.6 mg/dL (<1.0); Calcium 8.7 mg/dL (8.4-10.2); Carbon Dioxide 31 mmol/L (22-30); Chloride 98 mmol/L (98-107); Estimated CRCL calculation 54 ml/min; Estimated Glomerular Filt Rate 58; Glucose 180 mg/dL (65-110); Lactate Dehydrogenase 626 U/L (313-618); Magnesium 2.3 mg/dL (1.6-2.3); Potassium 4.1 mmol/L (3.4-5.0); Sodium 139 mmol/L (137-145)
[2021-08-14] MEDS: carvediloL 12.5 MG TABLET BY MOUTH (08:07)
[2021-08-14] MEDS: ASPIRIN 81 MG CHEWABLE TABLET PO (08:07)
[2021-08-14] MEDS: DEXAMETHASONE 2 MG TABLET 6 MG PO (08:09)
[2021-08-14] MEDS: SODIUM BICARBONATE TAB 650 MG TABLET 1300 MG PO (08:09)
[2021-08-14] MEDS: lisinopriL 10 MG TABLET PO (08:10)
[2021-08-14] MEDS: SERTRALINE HCL 25 MG TABLET PO (08:10)
[2021-08-14] MEDS: GABAPENTIN 100 MG CAPSULE BY MOUTH (08:10)
[2021-08-14] MEDS: FUROSEMIDE INJ 40 MG/4 ML VIAL IV PUSH (08:10)
[2021-08-14] MEDS: ROSUVASTATIN 10 MG TABLET PO (08:10)
[2021-08-14] MEDS: ENOXAPARIN 40 MG/0.4 ML SYRINGE SUB-Q (08:11)
[2021-08-14] MEDS: ERYTHROMYCIN OPHTH OINTMENT 1 GM TUBE 1 APPLIC EACH EYE ×2 (08:11→12:15)
[2021-08-14] MEDS: TRIAMCINOLONE ACET 0.1% CREAM 15 GM TUBE 1 APPLIC TOPICAL (08:13)
--- NOTE | 2021-08-14 08:15 | P.DS_ITS ---
DS: Admitting Diagnosis Discharge Date 08/14/21 0815 Admitting Diagnosis COVID-19 PNA DS: Discharge Diagnosis Discharge Diagnosis (1) Pneumonia due to COVID-19 virus: Code(s): U07.1 - COVID-19; J12.82 - Pneumonia due to coronavirus disease 2018 Status: Acute Assessment and Plan: * Tested COVID positive 07/27/21 * CTA Extensive patchy consolidating bilateral groundglass pulmonary infiltrates, right greater than left, suggesting extensive bilateral Covid pneumonia * oxygen room air, wean to maintain saturation >90% * Continue with Decadron and remdesivir Day 4 * Trend Inflammatory markers: LDH 626, D-dimer 3.32, CRP 1.6, Ferritin 142 * BNP elevated 1600,one dose of IV lasix now * Encourage self proning * Albuterol inhalers * IS, Cornette therapy * Sputum culture came back contaminated * Start azithromycin and ceftriaxone since WBC are elevated, but tending down currently WBC 12.3 (2) Acute respiratory failure due to COVID-19: Code(s): U07.1 - COVID-19; J96.00 - Acute respiratory failure, unspecified whether with hypoxia or hypercapnia Status: Acute Assessment and Plan: * Saturations low in ED 84% * Supplemental oxygen * Wean oxygen as indicated * Maintain saturations to keep >90% (3) Diabetes: Code(s): E11.9 - Type 2 diabetes mellitus without complications Status: Chronic Assessment and Plan: * Glucose 180 * Sliding scale insulin * A1c 7.3 * Seems to be diet controlled * Trend closely as patient is on steroids * Adjust therapy as indicated (4) HTN (hypertension): Code(s): I10 - Essential (primary) hypertension Status: Chronic Assessment and Plan: * BP elevated at 117/65 * Continue home Coreg 6.25, increased to 12.5mg and lisinopril 10mg * Trend blood pressure * Adjust medications as indicated (5) HLD (hyperlipidemia): Code(s): E78.5 - Hyperlipidemia, unspecified Status: Chronic Assessment and Plan: * AST/ALT 32/36 * Continue with rosuvastatin (6) Conjunctivitis: Code(s): H10.9 - Unspecified conjunctivitis Status: Acute Assessment and Plan: * Continue erythromycin ointment (7) Neuropathy: Code(s): G62.9 - Polyneuropathy, unspecified Status: Chronic Assessment and Plan: * Continue gabapentin 100mg BID * Increase based on symptoms (8) Fluid overload: Code(s): E87.70 - Fluid overload, unspecified Status: Acute Assessment and Plan: * BNP elevated 1600 * Echo Shows no diastolic dysfunction, and an EF of 60-65% * No history of CHF, however could be playing a role * Lasix as indicated day by day DS: Summary Hospital Course Hospital Course: Patient is an 81-year-old male with a past medical history CAD with a CABG, diabetes, hyperlipidemia, hypertension who presented to the ED with shortness of breath and hypoxia. Patient tested positive for COVID on July 27. He originally was coming to the ED to have his eyes looked at. Patient to go to the eye doctor and found that he had some conjunctivitis. However all of his here he did have a low saturation of 84 and was provided supplemental oxygen at 6 L. Patient was able to be successfully weaned to room air. Patient is ready to go. BNP was noted to be elevated at 1600 and Lasix was given on a day-to-day basis
--- NOTE | 2021-08-14 08:15 | PM.DS ---
DS: Admitting Diagnosis Discharge Date 08/14/21 0815 Admitting Diagnosis COVID-19 PNA DS: Discharge Diagnosis Discharge Diagnosis (1) Pneumonia due to COVID-19 virus: Code(s): U07.1 - COVID-19; J12.82 - Pneumonia due to coronavirus disease 2018 Status: Acute Assessment and Plan: Tested COVID positive 07/27/21 CTA Extensive patchy consolidating bilateral groundglass pulmonary infiltrates, right greater than left, suggesting extensive bilateral Covid pneumonia oxygen room air, wean to maintain saturation >90% Continue with Decadron and remdesivir Day 4 Trend Inflammatory markers: LDH 626, D-dimer 3.32, CRP 1.6, Ferritin 142 BNP elevated 1600,one dose of IV lasix now Encourage self proning Albuterol inhalers IS, Cornette therapy Sputum culture came back contaminated Start azithromycin and ceftriaxone since WBC are elevated, but tending down currently WBC 12.3 (2) Acute respiratory failure due to COVID-19: Code(s): U07.1 - COVID-19; J96.00 - Acute respiratory failure, unspecified whether with hypoxia or hypercapnia Status: Acute Assessment and Plan: Saturations low in ED 84% Supplemental oxygen Wean oxygen as indicated Maintain saturations to keep >90% (3) Diabetes: Code(s): E11.9 - Type 2 diabetes mellitus without complications Status: Chronic Assessment and Plan: Glucose 180 Sliding scale insulin A1c 7.3 Seems to be diet controlled Trend closely as patient is on steroids Adjust therapy as indicated (4) HTN (hypertension): Code(s): I10 - Essential (primary) hypertension Status: Chronic Assessment and Plan: BP elevated at 117/65 Continue home Coreg 6.25, increased to 12.5mg and lisinopril 10mg Trend blood pressure Adjust medications as indicated (5) HLD (hyperlipidemia): Code(s): E78.5 - Hyperlipidemia, unspecified Status: Chronic Assessment and Plan: AST/ALT 32/36 Continue with rosuvastatin (6) Conjunctivitis: Code(s): H10.9 - Unspecified conjunctivitis Status: Acute Assessment and Plan: Continue erythromycin ointment (7) Neuropathy: Code(s): G62.9 - Polyneuropathy, unspecified Status: Chronic Assessment and Plan: Continue gabapentin 100mg BID Increase based on symptoms (8) Fluid overload: Code(s): E87.70 - Fluid overload, unspecified Status: Acute Assessment and Plan: BNP elevated 1600 Echo Shows no diastolic dysfunction, and an EF of 60-65% No history of CHF, however could be playing a role Lasix as indicated day by day DS: Summary Hospital Course Hospital Course: Patient is an 81-year-old male with a past medical history CAD with a CABG, diabetes, hyperlipidemia, hypertension who presented to the ED with shortness of breath and hypoxia. Patient tested positive for COVID on July 27. He originally was coming to the ED to have his eyes looked at. Patient to go to the eye doctor and found that he had some conjunctivitis. However all of his here he did have a low saturation of 84 and was provided supplemental oxygen at 6 L. Patient was able to be successfully weaned to room air. Patient is ready to go. BNP was noted to be elevated at 1600 and Lasix was given on a day-to-day basis patient was also noted to have an elevated white blood cell count and was started on a azithromycin and ceftriaxone. White blood cell counts have been stable since that. Patient was also started on IV Decadron and remdesivir is received a full 5 day course. Glucose has been controlled in the 180s. A1c was 7.3. Patient should be started on metformin 500mg p.o. daily blood pressure was also noted to be elevated and patient scoring was increased to 12.5 along with lisinopril. AST and ALT have been normal throughout the entire visit status patient was also placed on er
[2021-08-14 08:16] LABS: Glucose Point of Care 134 mg/dl (65-105)
--- NOTE | 2021-08-14 08:29 | PC.NURSE ---
Outpatient referral for Initial DSMT and [facility]
[2021-08-14 11:56] LABS: Glucose Point of Care 176 mg/dl (65-105)
--- NOTE | 2021-08-14 12:48 | HOMEO2EVAL ---
Evaluation was performed at [facility] Home Oxygen Evaluation RC: Home Oxygen (O2) Evaluation Start: 08/14/21 08:05 Freq: ONCE Status: Active Protocol: RPE Activity Type Activity Date Activity User E-Sign Co-Sign Detail Recorded Client Recorded Date Recorded By Document 08/14/21 11:30 CARRINGTON [email or web address] 08/14/21 12:48 CARRINGTON Document 08/14/21 11:31 CARRINGTON [email or web address] 08/14/21 12:48 CARRINGTON Document 08/14/21 11:32 CARRINGTON [email or web address] 08/14/21 12:48 CARRINGTON Document 08/14/21 11:33 CARRINGTON [email or web address] 08/14/21 12:48 CARRINGTON Document 08/14/21 11:34 CARRINGTON [email or web address] 08/14/21 12:48 CARRINGTON Document 08/14/21 11:45 CARRINGTON [email or web address] 08/14/21 12:48 CARRINGTON 08/14/21 08/14/21 08/14/21 11:30 11:31 11:32 Home O2 Evaluation Test Phase Resting Exercise Exercise Oxygen Delivery Room Air Room Air Nasal Cannula Oxygen Flow Rate (L/min) 1 Pulse Oximetry (90-100 %) 91 86 L 86 L Home Oxygen Evaluation Comments Treatment Charges O2 Evaluation - Inpatient 08/14/21 08/14/21 08/14/21 11:33 11:34 11:45 Home O2 Evaluation Test Phase Exercise Exercise Resting Oxygen Delivery Nasal Cannula Nasal Cannula Room Air Oxygen Flow Rate (L/min) 2 3 Pulse Oximetry (90-100 %) 87 L 89 L 89 L Home Oxygen Evaluation Comments PT REQUIRES 3 L WITH ACTIVITY/ EXERTION Treatment Charges
--- NOTE | 2021-08-14 12:49 | PCRCNOTE ---
HOME O2 EVAL DONE, PT REQUIRES 3 L WITH ACTIVITY, ROOM AIR AT REST
--- NOTE | 2021-08-14 14:53 | PC.NURSE ---
patient states that he is no longer waiting on compamy for oxygen tank. He is only waiting until 3:15pm. pt requires 3 L with activity and room air at rest per respiratory therapist.
== END 2021-08-14 15:25 | disposition home or self-care (01) | DRG 177 ==
LOC: ANHED 18:02 → ANH3MEDSUR 20:51
PROVIDERS: Nurse Practitioner; Admitting Provider Internal Medicine; Emergency Provider Emergency Medicine; PCP Family Medicine; Visit Provider Nurse Practitioner
DX: U07.1 COVID-19 (principal); J12.82 Pneumonia due to coronavirus disease 2019; J96.01 Acute respiratory failure with hypoxia; E78.5 Hyperlipidemia, unspecified; H10.9 Unspecified conjunctivitis; E11.42 Type 2 diabetes mellitus with diabetic polyneuropathy; I11.0 Hypertensive heart disease with heart failure; I50.9 Heart failure, unspecified; K21.9 Gastro-esophageal reflux disease without esophagitis; Z96.659 Presence of unspecified artificial knee joint; E66.9 Obesity, unspecified; Z68.32 Body mass index [BMI] 32.0-32.9, adult; Z86.73 Personal history of transient ischemic attack (TIA), and cerebral infarction without residual deficits; Z95.1 Presence of aortocoronary bypass graft; Z90.49 Acquired absence of other specified parts of digestive tract; Z87.891 Personal history of nicotine dependence
CPT/HCPCS: 36415; 71045; 71275; 80053; 82565; 82728; 82948; 83036; 83605; 83615; 83735; 83880; 84443; 84460; 85025; 85380; 85610; 86140; 87040; 87070; 87205; 93306; 94618; 96374; 99285; A9270; J0456; J0696; J1100; J1650; J1815; J1940; J8540; Q9967

== ENCOUNTER 2021-10-24 09:15 | Outpatient (RCR) | payer OTHER, SELFPAY ==
[2021-10-03 10:57] VITALS: BMI 32.4
[2021-10-03 11:08] VITALS: BMI 32.4
== END 2021-12-17 09:33 | disposition home or self-care (01) ==
LOC: ANHDMC 09:15
PROVIDERS: PCP Family Medicine; Visit Provider Physician Assistant
DX: E11.65 Type 2 diabetes mellitus with hyperglycemia (principal); Z71.3 Dietary counseling and surveillance; Z71.89 Other specified counseling
CPT/HCPCS: 97802; 99199; G0108

== ENCOUNTER 2022-01-05 14:01 | Emergency (ER) | payer OTHER, SELFPAY ==
[2022-01-05 14:13] VITALS: BP 141/71; PULSE 96; RESP 18; TEMP 36.1; O2SAT 97
--- NOTE | 2022-01-05 14:13 | ED.EAR ---
HPI - Ear Problem General Chief complaint: Ear Stated complaint: Ear Pain Time Seen by Provider: 01/05/22 14:14 Source: patient, RN notes reviewed and old records reviewed Mode of arrival: ambulatory Limitations: no limitations History of Present Illness HPI Narrative: 81-year-old male presents to the [facility] with complaints of left ear pain with bleeding. States he has been treating it with eardrops. Patient states he has been on antibiotics and using eardrops. Noticed thick bloody to white drainage from the left ear today. States the pain actually decreased but the pain in the right ear increased. MD Complaint: ear pain Related Data Home Medications Medication Instructions Recorded Confirmed blood sugar diagnostic (Contour #10 ea 11/15/19 Next Test Strips) insulin glargine 100 unit/mL (3 30 unit subcut DAILY 11/15/19 08/09/21 mL) subcutaneous pen (Lantus Solostar U-100 Insulin) lisinopril 10 mg tablet 10 mg PO DAILY 11/15/19 08/09/21 pen needle, diabetic 32 gauge x #10 ea 11/15/19 (1st Tier Unifine Pentips) triamcinolone acetonide 0.1 % 1 applic topical DAILY 11/15/19 08/09/21 lotion aspirin 81 mg tablet 81 mg PO DAILY 08/09/21 01/05/22 famotidine 10 mg tablet 10 mg PO HS 08/09/21 08/09/21 gabapentin 100 mg capsule 100 mg BID 08/09/21 08/09/21 rosuvastatin 10 mg tablet 10 mg PO DAILY 08/09/21 08/09/21 sertraline 25 mg tablet 25 mg PO DAILY 08/09/21 08/09/21 sodium bicarbonate 650 mg tablet 1,300 mg PO BID 08/09/21 08/09/21 tamsulosin 0.4 mg capsule cap PO 01/05/22 01/05/22 Allergies Allergy/AdvReac Type Severity Reaction Status Date / Time No Known Allergies Allergy Verified 01/05/22 14:19 Review of Systems Review of Systems: All systems reviewed & are unremarkable except as noted in HPI and below Constitutional: Constitutional: Reports no additional constitutional complaints, Denies chills and Denies fever(s) Eyes: Eyes: Reports no additional eye complaints ENT: Reports as per HPI, Denies change in voice, Denies dental pain, Denies vertigo, Denies dizziness and Denies throat swelling Comments: Ear pain bilateral, left ear drainage Cardiovascular: Cardiovascular: Reports no additional cardiovascular complaints, Denies chest pain and Denies dyspnea Respiratory: Respiratory: Reports no additional respiratory complaints, Denies cough and Denies dyspnea Gastrointestinal: Gastrointestinal: Reports no additional gastrointestinal complaints, Denies abdominal pain, Denies nausea and Denies vomiting Musculoskeletal: Musculoskeletal: Reports no additional musculoskeletal complaints Integumentary/Breasts: Skin/Breast: Reports system reviewed and no additional complaints, except as docu Neurologic: Reports system reviewed and no additional complaints, except as documented, Denies vertigo and Denies dizziness Psychiatric: Psychiatric: Reports no additional psychiatric complaints Allergic/Immunologic: Allergic/Immunologic: Reports no additional allergic/immunologic complaints and Denies throat swelling PMFSH Past Medical History Medical History (Updated 01/05/22 @ 14:21 by Fatou Mora APRN) Diabetes GERD (gastroesophageal reflux disease) History of TIA (transient ischemic attack) HLD (hyperlipidemia) HTN (hypertension) Neuropathy Surgical History Surgical History H/O heart bypass surgery 5 vessel Hx of appendectomy Hx of total knee replacement Family History Family History Father Drug reaction Mother Diabetes mellitus Sibling Diabetes mellitus Social History Social History Social History: The patient stated that he quit smoking many years ago. He stated his around 1995. The patient is and he has 3 children. 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 he does not have a durable power deputy attorney general
== END 2022-01-05 14:24 | disposition home or self-care (01) ==
PROVIDERS: Emergency Provider Nurse Practitioner; PCP Physician Assistant
DX: H66.91 Otitis media, unspecified, right ear (principal); H66.012 Acute suppurative otitis media with spontaneous rupture of ear drum, left ear; Z87.891 Personal history of nicotine dependence; K21.9 Gastro-esophageal reflux disease without esophagitis; Z86.73 Personal history of transient ischemic attack (TIA), and cerebral infarction without residual deficits; E78.5 Hyperlipidemia, unspecified; I10 Essential (primary) hypertension; E11.40 Type 2 diabetes mellitus with diabetic neuropathy, unspecified
CPT/HCPCS: 99213; G0463

== ENCOUNTER 2023-08-14 13:58 | Emergency (ER) | payer OTHER, SELFPAY ==
--- NOTE | ~2023-08-14 | XR_ITS ---
EXAMINATION: XR knee RT 3V, XR femur RT min 2V DATE: 08/14/2023 14:48 INDICATION: Lateral right knee and femur pain post fall TECHNIQUE: 1. Anteroposterior, 2 oblique and crosstable lateral views of the right knee were obtained. 2. AP and lateral views of the right femur were obtained on overlapping proximal and distal images. COMPARISON: Right knee radiographs dated 07/14/2020 FINDINGS: Again seen is a right total knee arthroplasty with patellar resurfacing which remains well seated in near anatomic alignment. No fracture. Old right knee joint effusion. 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 Vascular calcifications extending along the right femoral arteries. Tiny surgical clip in the s oft tissues medial to the right knee. Soft tissues are otherwise unremarkable. IMPRESSION: 1. Expected appearance of a right total knee arthroplasty. No right knee joint effusion or acute osse ous abnormality. Reviewed, dictated and finalized at location [facility]. UNT MANAGER EDUCATION IMPRESSION: 1. Expected appearance of a right total knee arthroplasty. No right knee joint effusion or acute osseous abnormality.
--- NOTE | ~2023-08-14 | XR_ITS ---
XR_[id number] DATE: 08/14/2023 14:48 INDICATION: Fall. Neck pain. TECHNIQUE: AP, lateral, open mouth and bilateral oblique views COMPARISON: None FINDINGS: C1 and C2 are normally aligned and the odontoid process is intact. No fracture or dislocation or locked facet or prevertebral soft tissue swelling is detected. There is prominent bridging anterior spur at C5-6 with preservation of the C5-6 interspace. There is mild loss of interspace height at C6-7. There is degenerative change at some of the apophyse al joints. Status post sternotomy. Aortic arch calcification. IMPRESSION: Mild to moderate cervical spondylosis; no fracture or dislocation or locked facet is dete cted Reviewed, dictated and finalized at [facility]. Reviewed, dictated and finalized at location [facility]. [employer] RETAILER SALES CONSULTANT IMPRESSION: Mild to moderate cervical spondylosis; no fracture or dislocation o r locked facet is detected
--- NOTE | 2023-08-14 14:00 | ED.FALL ---
HPI - Fall General Chief Complaint: Fall Stated Complaint: fall onto ice, right leg/hip, head,neck Time Seen by Provider: 08/14/23 14:00 Source: patient Mode of arrival: ambulatory Limitations: no limitations History of Present Illness HPI Narrative: Jordy is an 83-year-old male patient presenting to the clinic today with complaints of a ground level fall-slipped on the ice that occurred on Friday. He reports he fell backwards. Walks with a cane, he is complaining of right lateral thigh, right knee, and neck pain. He reports he did hit the back his head but did not have loss of conscious. Denies any headache or head pain at this time. Takes a daily baby aspirin but no other antiplatelets or anticoagulation medications. Neck pain is radiating into the shoulders. Has pain with full flexion and extension of the right knee, Related Data Home Medications Medication Instructions Recorded Confirmed blood sugar diagnostic (Contour #10 ea 11/15/19 08/14/23 Next Test Strips) insulin glargine 100 unit/mL (3 30 unit subcut DAILY 11/15/19 08/14/23 mL) subcutaneous pen (Lantus Solostar U-100 Insulin) lisinopril 10 mg tablet 10 mg PO DAILY 11/15/19 08/14/23 pen needle, diabetic 32 gauge x #10 ea 11/15/19 08/14/23 5/32 (1st Tier Unifine Pentips) triamcinolone acetonide 0.1 % 1 applic topical DAILY 11/15/19 08/14/23 lotion aspirin 81 mg tablet 81 mg PO DAILY 08/09/21 08/14/23 famotidine 10 mg tablet 10 mg PO HS 08/09/21 08/14/23 gabapentin 100 mg capsule 100 mg BID 08/09/21 08/14/23 rosuvastatin 10 mg tablet 10 mg PO DAILY 08/09/21 08/14/23 sertraline 25 mg tablet 25 mg PO DAILY 08/09/21 08/14/23 sodium bicarbonate 650 mg tablet 1,300 mg PO BID 08/09/21 08/14/23 tamsulosin 0.4 mg capsule 1 cap PO DIRECTED 01/05/22 08/14/23 Allergies Allergy/AdvReac Type Severity Reaction Status Date / Time No Known Allergies Allergy Verified 01/05/22 14:19 Review of Systems Review of Systems: Pertinent positives per HPI. Patient denies any fever, chills, rash, headache, visual changes, dizziness, cough, shortness of breath, chest pain, palpitations, nausea, vomiting, diarrhea, constipation, abdominal pain, or any urinary issues. [facility] Past Medical History Medical History Diabetes GERD (gastroesophageal reflux disease) History of TIA (transient ischemic attack) HLD (hyperlipidemia) HTN (hypertension) Neuropathy Surgical History Surgical History H/O heart bypass surgery 5 vessel Hx of appendectomy Hx of total knee replacement Family History Family History Father Drug reaction Mother Diabetes mellitus Sibling Diabetes mellitus Social History Social History Social History: The patient stated that he quit smoking many years ago. He stated his around 1995. The patient is and he has 3 children. 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 he does not have a durable power civil attorney for healthcare. He denies any alcohol marijuana or illicit drugs. Code status full code Smoking status: Former smoker Alcohol intake: never Substance use: never Spiritual care concerns: No Comments At the time of my signature, I reviewed and agree with the nursing past medical, surgical, social, and family history. There is no relevant family history pertinent to the patient complaint. Exam Narrative: General: Well-developed, well nourished, in no apparent distress Head: Normocephalic, atraumatic. Cardio: Regular rate and rhythm, s1 and s2 normal, no murmur appreciated. Resp: Clear to auscultation bilaterally, no rhonchi, rales, wheezing or rubs. Musculoskeletal: No deformity,tender to palpation over the posterior lower cervical spine, pain with turning his head to
[2023-08-14 14:10] VITALS: BP 155/94; PULSE 93; RESP 16; TEMP 36.7; O2SAT 99
== END 2023-08-14 15:28 | disposition home or self-care (01) ==
PROVIDERS: Emergency Provider Nurse Practitioner Family; PCP Internal Medicine
DX: S16.1XXA Strain of muscle, fascia and tendon at neck level, initial encounter (principal); S83.91XA Sprain of unspecified site of right knee, initial encounter; S70.11XA Contusion of right thigh, initial encounter; W00.0XXA Fall on same level due to ice and snow, initial encounter; K21.9 Gastro-esophageal reflux disease without esophagitis; E78.5 Hyperlipidemia, unspecified; I10 Essential (primary) hypertension; E11.40 Type 2 diabetes mellitus with diabetic neuropathy, unspecified; Z95.1 Presence of aortocoronary bypass graft; Z86.73 Personal history of transient ischemic attack (TIA), and cerebral infarction without residual deficits; Z79.82 Long term (current) use of aspirin; Z87.891 Personal history of nicotine dependence
CPT/HCPCS: 72040; 73552; 73562; 99214; G0463

== ENCOUNTER 2025-04-17 12:39 | Emergency (ER) | payer MEDICARE, SELFPAY ==
--- NOTE | ~2025-04-17 | XR_ITS ---
Abdominal radiograph(s) INDICATION: No bowel movement 7 days COMPARISON: None TECHNIQUE: 2 views supine AP abdomen FINDINGS: Lung bases clear. Scattered colonic gas and stool. Moderate stool volume. Small bowel loops not well seen. No evidence of organomegaly. Left upper quadrant calcifications arterial. Focal calcification right upper quadrant nonspecific. Pelvic phleboliths. No acute bony abnormality. IMPRESSION: 1. No acute findings. 2. Moderate stool volume suggests constipation, though not extremely large. Reviewed, dictated and finalized at location R.
--- NOTE | 2025-04-17 12:46 | ED.GENADULT ---
HPI - General Adult General Chief complaint: Unspecified Stated complaint: no bowel movement in seven days Time Seen by Provider: 04/17/25 12:48 Source: patient Mode of arrival: ambulatory Limitations: no limitations History of Present Illness HPI narrative: 85-year-old male patient presents to the [facility] with complaints of no bowel movement for the past week. Denies fevers body aches or chills. Denies any nausea or vomiting. Patient states he has continued to eat like normal but states he has not been able to pass any gas no bowel movement no watery diarrhea nothing. Patient states he did try and take some stool softener pills last night but no attend for stool softeners prior to. Related Data Home Medications ?Medication ?Instructions ?Recorded ?Confirmed ?Last Taken ?Type blood sugar diagnostic (Contour #10 ea 11/15/19 11/26/23 Unknown History Next Test Strips) insulin glargine 100 unit/mL (3 30 unit subcut DAILY 11/15/19 11/26/23 Unknown History mL) subcutaneous pen (Lantus Solostar U-100 Insulin) lisinopril 10 mg tablet 10 mg PO DAILY 11/15/19 11/26/23 Unknown History pen needle, diabetic 32 gauge x #10 ea 11/15/19 11/26/23 Unknown History (1st Tier Unifine Pentips) triamcinolone acetonide 0.1 % 1 applic topical DAILY 11/15/19 11/26/23 Unknown History lotion aspirin 81 mg tablet 81 mg PO DAILY 08/09/21 11/26/23 Unknown History famotidine 10 mg tablet 10 mg PO HS 08/09/21 11/26/23 Unknown History gabapentin 100 mg capsule 100 mg BID 08/09/21 11/26/23 Unknown History rosuvastatin 10 mg tablet 10 mg PO DAILY 08/09/21 11/26/23 Unknown History sertraline 25 mg tablet 25 mg PO DAILY 08/09/21 11/26/23 Unknown History sodium bicarbonate 650 mg tablet 1,300 mg PO BID 08/09/21 11/26/23 Unknown History tamsulosin 0.4 mg capsule 1 cap PO DIRECTED 01/05/22 11/26/23 Unknown History Allergies Allergy/AdvReac Type Severity Reaction Status Date / Time No Known Allergies Allergy Verified 04/17/25 12:51 Review of Systems Review of Systems: CONSTITUTIONAL: Denies fever, chills, or sweats. EYES: Denies visual changes, redness, or discharge. ENT: Denies rhinorrhea, congestion, sore throat, or otalgia. CARDIOVASCULAR: Denies chest pain, palpitations, or edema. RESPIRATORY: Denies cough or dyspnea. GASTROINTESTINAL: Positive lower s abdominal pain, denies nausea, vomiting, or diarrhea. Positive no bowel movement x7 days GENITOURINARY: Denies dysuria or hematuria. SKIN: Denies rash or itching. MUSCULOSKELETAL: Denies back pain, joint pain, or myalgia. NEUROLOGIC: Denies headache, numbness, or weakness. PSYCHIATRIC: Denies anxiety or depression. 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 He stated his around 1995. The patient is and he has 3 children. 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 he does not have a durable power banking attorney for healthcare. He denies any alcohol marijuana or illicit drugs. Code status full code Smoking status: Former smoker Alcohol intake: never Substance use: never Spiritual care concerns: No Comments At the time of my signature I agree with nursing past medical history, surgical, social, and family history. There is no relevant family history pertinent to the presenting complaint. Exam Narrative: GENERAL: Well-appearing, well-nourished, and in no acute distress. HEAD: Normocephalic, atraumatic. EYES: PERRLA and EOMI. ENT: Nares clear, no rhinorrhea or epistaxis. Mucous membranes moist. NECK: Supple. No lymphadenopathy CHEST: Clear to auscultation. No respiratory distress. HEART: Regular rate and rhythm. No murmur heard. Normal peripheral pulses. ABDOMEN: Soft, distended. No guarding, rebound tenderness, or rigid. No pulsatilla masses. Hypoactive Bowel sounds present in all four quadrants. No organomegaly. Negative Villatoro?s sign. No periumbicial tenderness. Patient has mild tenderness noted to all 4 quadrants on palpation. No Supra public tenderness or distension. Good femoral pulses bilaterally. No hernia noted. No scars or surface trauma. EXTREMITIES: Normal range of motion. No edema. SKIN: Warm, dry, no rash. NEURO: No focal deficits. Alert and oriented x3. Course Course Level of Care: Express Care Visit Vital Signs Vital signs: Vital Signs Temperature 36.3 C L 04/17/25 12:49 Pulse Rate 86 04/17/25 12:49 Respiratory Rate 16 04/17/25 12:49 Blood Pressure 117/79 04/17/25 12:49 Pulse Oximetry 97 04/17/25 12:49 Oxygen Delivery Room Air 04/17/25 12:49 Temperature 36.3 C L 04/17/25 12:49 Pulse Rate 86 04/17/25 12:49 Respiratory Rate 16 04/17/25 12:49 Blood Pressure 117/79 04/17/25 12:49 Pulse Oximetry 97 04/17/25 12:49 Oxygen Delivery Room Air 04/17/25 12:49 Vital signs reviewed. Medical Decision Making MDM Narrative Medical decision making narrative: Plan of care for patient is to obtain a KUB to assess for any possible bowel obstruction. Differential Diagnosis Differential Diagnosis: Differential diagnosis: Appendicitis, gallbladder disease, pancreatitis, lower lobe pneumonia,AAA, AMI or ACS, DKA, diverticulitis, constipation Vital Signs Vital Signs: Vital Signs Temperature 36.3 C L 04/17/25 12:49 Pulse Rate 86 04/17/25 12:49 Respiratory Rate 16 04/17/25 12:49 Blood Pressure 117/79 04/17/25 12:49 Pulse Oximetry 97 04/17/25 12:49 Oxygen Delivery Room Air 04/17/25 12:49 Temperature 36.3 C L 04/17/25 12:49 Pulse Rate 86 04/17/25 12:49 Respiratory Rate 16 04/17/25 12:49 Blood Pressure 117/79 04/17/25 12:49 Pulse Oximetry 97 04/17/25 12:49 Oxygen Delivery Room Air 04/17/25 12:49 Imaging Data Radiologist's impression: [facility] [address] [place] [address] XRay Report Signed Patient: Jordy Olivarez : 1940 MR#: [id number] Age: 85 Acct:[id number] Loc: [facility] ADM Date: 04/17/25Attending Dr: Ordering Physician: Oneyda Curiel APRN Date of Service: 04/17/25 Procedure(s): XR abdomen/kub 1V Accession Number(s): [id number] cc: Sebastian, Duyen AHNN; Oneyda Curiel APRN~ Abdominal radiograph(s) INDICATION: No bowel movement 7 days COMPARISON: None TECHNIQUE: 2 views supine AP abdomen FINDINGS: Lung bases clear. Scattered colonic gas and stool. Moderate stool volume. Small bowel loops not well seen. No evidence of organomegaly. Left upper quadrant calcifications arterial. Focal calcification right upper quadrant nonspecific. Pelvic phleboliths. No acute bony abnormality. IMPRESSION: 1. No acute findings. 2. Moderate stool volume suggests constipation, though not extremely large. Reviewed, dictated and finalized at location R. Critical Care Time Critical Care Time Critical Care Time: No Discharge Plan Discharge Clinical Impression: Constipation Qualifiers: Constipation type: unspecified constipation type Qualified Code(s): K59.00 - Constipation, unspecified Patient Disposition: Home Condition: Stable Instructions: Antibiotic Form, Constipation (ED) Additional Instructions: Constipation means that you have a hard time passing stools (bowel movements). People pass stools from 3 times a day to once every 3 days. What is normal for you may be different. Constipation may occur with pain in the rectum and cramping. The pain may get worse when you try to pass stools. Sometimes there are small amounts of bright red blood on toilet paper or the surface of stools. This is because of enlarged veins near the rectum (hemorrhoids). A few changes in your diet and lifestyle may help you avoid ongoing constipation. Your doctor may also prescribe medicine to help loosen your stool. Some medicines can cause constipation. These include pain medicines and antidepressants. Tell your doctor about all the medicines you take. Your doctor may want to make a medicine change to ease your symptoms. Follow-up care is a [place] part of your treatment and safety.?Be sure to make and go to all appointments, and call your doctor or nurse advice line (811?in most provinces and [facility]) if you are having problems. It's also a good idea to know your test results and keep a list of the medicines you take. How can you care for yourself at home? Drink plenty of fluids. If you have kidney, heart, or liver disease and have to limit fluids, talk with your doctor before you increase the amount of fluids you drink.Include high-fibre foods in your diet each day. These include fruits, vegetables, beans, and whole grains.Get at least 2? hours of moderate to vigorous exercise a week. Walking is a good choice. You also may want to do other activities, such as running, swimming, cycling, or playing tennis or team sports.Take a fibre supplement, such as Benefibre or Metamucil, every day. Read and follow all instructions on the label.Schedule time each day for a bowel movement. A daily routine may help. Take your time having a bowel movement, but don't sit for more than 10 minutes at a time. And don't strain too much.Support your feet with a small step stool when you sit on the toilet. This helps flex your hips and places your pelvis in a squatting position.Your doctor may recommend an [id number] laxative to relieve your constipation. Examples are Milk of Magnesia and Restoralax. Read and follow all instructions on the label. Do not use laxatives on a long-term basis. For more information about how you and your healthcare provider can work together to address constipation, see?Your Pathway for Managing Chronic [email or web address]/[email or web address]-[email or web address]-ptypnhe-[email or web address]-[email or web address]. When should you call for help? Call your doctor or nurse advice line now?or seek immediate medical care if: You have new or worse belly pain.You have new or worse nausea or vomiting.You have blood in your stools. Watch closely for changes in your health, and be sure to contact your doctor or nurse advice line if: Your constipation is getting worse.You do not get better as expected. For 17/02 nurse advice and general health information call [facility] at 811. Patient Language: Estonian Prescriptions: New polyethylene glycol 3350 [Miralax] 17 gram/dose powder 17 g PO TID Qty: 238 0RF Rx Instructions: Drink powdered make sure 3 to 4 times a day until you start producing bowel movements and then go down to 1 powder supplement per day to keep you regular No Action tamsulosin 0.4 mg capsule 1 cap PO DIRECTED Lantus Solostar U-100 Insulin 100 unit/mL (3 mL) insulin pen 30 unit SUB-Q DAILY (DME) pen needle, diabetic [1st Tier Unifine Pentips] 32 gauge x 5/32 needle See Rx Instructions .ROUTE .MEDSUPPLY Qty: 10 Rx Instructions: As directed lisinopril 10 mg tablet 10 mg PO DAILY (DME) blood sugar diagnostic [Contour Next Test Strips] Strip See Rx Instructions .ROUTE .MEDSUPPLY Qty: 10 Rx Instructions: As directed triamcinolone acetonide 0.1 % lotion 1 applic TOPICAL DAILY Patient Comments: apply behind lt knee sertraline 25 mg tablet 25 mg PO DAILY gabapentin 100 mg capsule 100 mg BID rosuvastatin 10 mg tablet 10 mg PO DAILY famotidine 10 mg Tablet 10 mg PO HS sodium bicarbonate 650 mg Tablet 1,300 mg PO BID aspirin 81 mg Tablet 81 mg PO DAILY carvedilol [Coreg] 12.5 mg Tablet 12.5 mg BYMOUTH Q12HR Qty: 30 0RF albuterol sulfate [Proventil HFA] 90 mcg/actuation Hfa Aerosol Inhaler 2 puff inhalation Q6HRT PRN (Reason: Shortness Of Breath) Qty: 8.5 0RF metformin 500 mg tablet 500 mg PO DAILY Qty: 30 0RF Follow-up/Referrals: Sebastian,YAHAIRA Geller [Primary Care Provider, Unknown] Time of Disposition: 13:31
[2025-04-17 12:49] VITALS: BP 117/79; PULSE 86; RESP 16; TEMP 36.3; O2SAT 97
== END 2025-04-17 13:42 | disposition home or self-care (01) ==
PROVIDERS: Emergency Provider Nurse Practitioner Family; PCP Nurse Practitioner Family
DX: K59.00 Constipation, unspecified (principal); Z87.891 Personal history of nicotine dependence; E11.42 Type 2 diabetes mellitus with diabetic polyneuropathy; Z79.4 Long term (current) use of insulin; I10 Essential (primary) hypertension; E78.5 Hyperlipidemia, unspecified; K21.9 Gastro-esophageal reflux disease without esophagitis; Z86.73 Personal history of transient ischemic attack (TIA), and cerebral infarction without residual deficits; Z95.1 Presence of aortocoronary bypass graft; Z79.82 Long term (current) use of aspirin
CPT/HCPCS: 74018; 99213; G0463